=== PATIENT | female | born 1930 | race Caucasian/White ===

== ENCOUNTER 2017-06-17 12:14 | Emergency (ER) | payer OTHER ==
[~2017-06-17] VITALS: Ht 160 cm; Wt 77.1 kg
[~2017-06-17 12:14] MED LIST: ALENDRONATE SOD70 MG PO; ASA81BEC PO; AUGMENTIN 875875 MG PO; CALCIUM 500 +1 EAC5 PO; CIPRO250 M1 PO; CIPRO500 M1 PO; CIPRO500 MG PO; CRESTOR10 MG PO; FLAGYL500 MG PO; FLONASE 0.05%50 MCG NASAL; FOLIC ACID1 MG PO; GABAPENTIN 100100 MG PO; GLUCOSAMINE HC500 MG PO; INDERAL LA160 MG PO; LORATIDINE 10 M10 M1 PO; LOVASTATIN 20 M20 MG PO; MACROBID 100 M100 M1 PO; MAGOX 400400 MG PO; MAXZIDE-25 MG1 EACH PO; METHOTREXATE 22.5 MG; METHOTREXATE 22.5 MG PO; MIRALAX17 GM PO; NEURONTIN 400M400 M2 PO; NORCO 5-325 TA1 EACH PO; PANTOPRAZOLE SO40 M1 PO; PHENAZOPYRIDIN100 M1 PO; PILOCARPINE 1%15 ML; POTASSIUM20 PO; PREDNISONE 1 MG1 M1 PO; PREDNISONE 10 M10 MG PO; PROPRANOLOL 8080 MG PO; TRAMADOL 50 MG50 MG PO; TYLENOL325 MG PO; UNICOMPLEX M TA1 TA1 PO; XANAX 0.25 MG0.25 MG PO
[2017-06-17] MEDS ORDERED: VALACYCLOVIR1000 MG PO (12:37)
== END 2017-06-17 12:37 | disposition home or self-care (01) ==
LOC: ER 12:14
DX: B02.9 Zoster without complications (principal); I10 Essential (primary) hypertension; F41.9 Anxiety disorder, unspecified; F32.9 Major depressive disorder, single episode, unspecified; Z90.49 Acquired absence of other specified parts of digestive tract; Z88.1 Allergy status to other antibiotic agents; Z88.2 Allergy status to sulfonamides; Z88.8 Allergy status to other drugs, medicaments and biological substances

== ENCOUNTER 2017-07-03 11:54 | Emergency (ER) | payer OTHER ==
[~2017-07-03] VITALS: Ht 160 cm; Wt 77.1 kg
[~2017-07-03 11:54] MED LIST changes: +VALACYCLOVIR1000 MG PO
[2017-07-03 12:35] LABS: URINE BILIRUBIN 1+ (Negative); URINE BLOOD 3+ (Negative); URINE COLOR RED; URINE GLUCOSE-RANDOM* NEGATIVE (Negative); URINE KETONES NEGATIVE (Negative); URINE PROTEIN (DIPSTICK) 2+ (Negative); URINE SPECIFIC GRAVITY 1.015 (1.003-1.035); URINE UROBILINOGEN 0.2 E.U./dl (0.2-1.0)
[2017-07-03 12:40] LABS: ICTOTEST (BILI CONFIRMATORY) Negative (Negative); URINE LEUKOCYTES-REFLEX 1+ (Negative)
[2017-07-03 12:46] LABS: CASTS None Seen /LPF (None Seen); CRYSTALS None Seen /LPF (None Seen); SQUAMOUS 0-3 Few /LPF (0-3); URINE RBC >20 Many /HPF (0-2); URINE WBC-REFLEX 6-15 Few /HPF (0-5)
[2017-07-03] MEDS ORDERED: BACTRIM DS TAB1 EACH PO (13:56)
== END 2017-07-03 14:18 | disposition home or self-care (01) ==
LOC: ER 11:54
PROVIDERS: Physician Assistant
DX: N39.0 Urinary tract infection, site not specified (principal); I10 Essential (primary) hypertension; F41.9 Anxiety disorder, unspecified; F32.9 Major depressive disorder, single episode, unspecified; Z88.1 Allergy status to other antibiotic agents; Z88.2 Allergy status to sulfonamides; Z88.8 Allergy status to other drugs, medicaments and biological substances

== ENCOUNTER → 2017-10-04 | Outpatient (CLI) | payer OTHER ==
[~2017-10-04] MED LIST changes: +BACTRIM DS TAB1 EACH PO
== END ==
LOC: RAD 14:52
DX: Z12.31 Encounter for screening mammogram for malignant neoplasm of breast (principal)

== ENCOUNTER 2017-12-03 10:12 | Emergency (ER) | payer OTHER ==
[~2017-12-03] VITALS: Ht 160 cm; Wt 74.4 kg
--- NOTE | ~2017-12-03 | EKG ---
[address] [place] [address] ELECTROCARDIOGRAM REPORT Name: DIONNE MCMAHAN [id number] Admission: 12/03/17 Attend Phys: Discharge: 12/03/17 Date of : 32 Report #: [id number] THIS REPORT FOR: //name// [facility] ED Test Date: 2017-12-03 Test Time: 10:24:20 Pat Name: DIONNE MCMAHAN Department: Room: Gender: F Criminal Psychologist: SUSAN : 1930 Requested By: Roberta Simental Order Number: [id number] MD: Bashir Nolasco Measurements Intervals [place] Rate: 74 P: 26 ND: 223 QRS: 4 QRSD: 101 T: 3 QT: 412 QTc: 457 Interpretive Statements Sinus rhythm Prolonged ND interval Poor R wave progression Borderline T abnormalities, anterior leads Compared to ECG 05/09/2014 19:01:06 No significant change was found Electronically Signed On 12-04-2017 14:30:18 SPREADING MACHINE OPERATOR by Bashir Nolasco [email or web address] <ELECTRONICALLY SIGNED> By: Bashir Nolasco MD, [facility] 12/04/17 1430 [facility] 1024 Bashir Nolasco MD, FAC /EPI
[2017-12-03 11:55] LABS: ABSOLUTE NEUTROPHILS 5.6 thou/uL (1.4-8.2); BASOPHILS 1.4 % (0.0-2.0); EOSINOPHILS 5.1 % (0.0-3.0); HEMATOCRIT 32.7 % (37.0-47.0); LYMPHOCYTES 20.8 % (24.0-44.0); MCH 31.2 pg (26.0-34.0); MCHC 33.7 g/dL (28.0-37.0); MCV 92.7 fL (80.0-100.0); PLATELET COUNT 278 thou/uL (150-400); POLYS 63.7 % (36.0-66.0); RBC 3.53 mil/uL (4.20-5.00); RDW 15.2 % (10.5-14.5); WBC 8.8 thou/uL (4.0-11.0)
[2017-12-03 11:56] LABS: CALCIUM 9.4 mg/dL (8.5-10.1); CREATININE 1.1 mg/dL (0.6-1.0)
[2017-12-03] MEDS ORDERED: POTASSIUM20 PO (12:26)
[2017-12-03] MEDS ORDERED: ZOFRAN ODT4 MG PO (12:26)
[2017-12-03 13:02] VITALS: BP 140/78
== END 2017-12-03 13:02 | disposition home or self-care (01) ==
LOC: ER 10:12
PROVIDERS: Emergency Medicine
DX: E87.6 Hypokalemia (principal); R19.7 Diarrhea, unspecified; R11.0 Nausea; I10 Essential (primary) hypertension; Z88.1 Allergy status to other antibiotic agents; Z88.2 Allergy status to sulfonamides

== ENCOUNTER 2018-03-26 12:07 | Inpatient (IN) | payer OTHER ==
[~2018-03-26] VITALS: Ht 160 cm; Wt 74.8 kg
--- NOTE | ~2018-03-26 | HC ---
[facility] [place] [address] CONSULTATION Name: DIONNE MMCAHAN Room #: 418-P [facility] IN M.R.#: [id number] Admission: 03/26/18 Attend Phys: Sina Gonzalez MD Discharge: Date of : 32 Report #: [id number] THIS REPORT FOR: //name// CC: Sebastien Gonzalez DATE OF SERVICE: 03/27/2018 REFERRING PROVIDER: Sina Gonzalez MD. REASON FOR CONSULT: Abdominal pain. HISTORY OF PRESENT ILLNESS: The patient is an 87-year-old female who has a significant past history of multiple bouts of acute sigmoid diverticulitis requiring hospitalizations who was in her usual state of health until 3-4 days ago when she developed recurrent left lower quadrant abdominal pain progressing to nausea, fevers and chills. The patient presented back to the Emergency Room for evaluation where she underwent workup with laboratories and a CT scan of the abdomen and pelvis. The patient was found to have a leukocytosis with a white blood cell count of 16.[address] scan once again showed acute sigmoid diverticulitis without perforation or abscess. As such, the patient has been admitted and I am asked to evaluate. PAST MEDICAL HISTORY: 1. Multiple (greater than 6) bouts of acute sigmoid diverticulitis requiring hospitalization, prior open cholecystectomy, pulmonary embolism in the past, hypertension, bilateral lower extremity neuropathy. 2. Anxiety with depression. 3. GERD. 4. Hypercholesterolemia. HOME MEDICATIONS: Xanax, aspirin, calcium, vitamin D3, Flonase, glucosamine, Claritin, multivitamin, Protonix, Ultram, triamterene/hydrochlorothiazide, gabapentin, alendronate, MiraLax, lovastatin, methotrexate and prednisone. ALLERGIES: EXTENSIVE AND INCLUDE AMOXICILLIN, CEFDINIR, LEVAQUIN, AMITIZA, PROMETHAZINE, AND SULFA. SOCIAL HISTORY: Does not utilize tobacco, alcohol or illicit drugs. FAMILY HISTORY: Reviewed and noncontributory. REVIEW OF SYSTEMS: GENERAL: The patient denies nocturnal fevers or chills. HEENT: No change in vision, change in hearing. NECK: No swelling or difficulty swallowing. [facility] [address] [place] [address] CONSULTATION Name: DIONNE MCMAHAN Room #: 418-P [facility] IN M.R.#: [id number] Admission: 03/26/18 Attend Phys: Sina Gonzalez MD Discharge: Date of : 32 Report #: [id number] HEART: No chest pain or palpitations. LUNGS: No cough or shortness of breath. ABDOMEN: Abdominal pain with nausea. GENITOURINARY: No dysuria or hematuria. ENDOCRINE: No polyuria or polydipsia. HEMATOLOGIC: No history of bleeding or easy bruising. EXTREMITIES: No history weakness or limited range of motion. NEUROLOGIC: No history of syncope or near syncopal episodes. SKIN AND INTEGUMENT: No history of abnormal lesions or moles. PSYCHIATRIC: History of anxiety and depression. PHYSICAL EXAMINATION: VITAL SIGNS: Temperature 37.2, pulse 85, respirations 16, blood pressure 148/73. GENERAL: Alert, in no acute distress. HEENT: Normocephalic, atraumatic. Pupils equal, round, reactive to light. NECK: Supple without lymphadenopathy. Trachea midline. HEART: Regular rate and rhythm. LUNGS: Clear to auscultation bilaterally. ABDOMEN: Soft, nondistended. She is tender to palpation in left lower quadrant, has very minimal guarding and no rebound with certainly no peritoneal signs or symptoms. GENITOURINARY: Normal external female genitalia. EXTREMITIES: No clubbing, cyanosis or edema. NEUROLOGIC: Cranial nerves 2-12 are grossly intact. PSYCHIATRIC: Normal mood and affect. SKIN AND INTEGUMENT: No abnormal lesions or moles. LABORATORY AND X-RAY DATA: CBC shows white blood cell count 16.2 thousand, hemoglobin 11.5, platelets 306,000. Creatinine 1.2. Liver function enzymes normal. Lactate is normal at 1.8. CRP is elevated at 114. Sed rate is elevated at 65. CT scan of the abdomen and pelvis as per HPI shows circumferential thickening of the sigmoid colon from the splenic flexure to the distal sigmoid colon. There is luminal narrowing seen and fat stranding consistent with acute on chronic diverticulitis. There is no abscess or perforation. ASSESSMENT AND PLAN: An 87-year-old female with yet another bout of acute sigmoid diverticulitis requiring admission, luckily without perforation or abscess. The patient will be kept n.p.o. with IV fluid rehydration, IV antibiotics in the form of Zosyn and we will allow her to improve, hopefully yet once again. Ultimately, she will necessitate a colonoscopy with formal left hemicolectomy due to her significant inflammatory findings seen on CT scan. Colonoscopy would not be able to be performed for at least approximately 4 weeks due to the friable nature of her acutely inflamed colon and the colectomy would be scheduled thereafter. If the patient should decompensate prior, she would [address] [place] [address] CONSULTATION Name: DIONNE MCMAHAN Room #: 418-P ADM IN M.R.#: [id number] Admission: 03/26/18 Attend Phys: Sina Gonzalez MD Discharge: Date of : 32 Report #: [id number] necessitate open procedure with colostomy placement. All the above was discussed with the patient and her daughter in detail and they agree to proceed as outlined. I will follow closely with serial abdominal exams, daily labs and leave any further recommendations in the patient's chart as appropriate. I sincerely appreciate this consult. <ELECTRONICALLY SIGNED> By: Raissa Wild MD, FACS 03/28/18 1659 1129 [id number] Raissa Wild MD, FACS /nt
--- NOTE | ~2018-03-26 | HC ---
[facility] [place] [address] CONSULTATION Name: DIONNE MCMAHAN Room #: 222-P [facility] IN M.R.#: [id number] Admission: 03/26/18 Attend Phys: Sina Gonzalez MD Discharge: 03/31/18 Date of : 32 Report #: [id number] THIS REPORT FOR: //name// CC: Sebastien Gonzalez DATE OF SERVICE: 03/31/2018 ATTENDING PHYSICIAN: Sina Gonzalez MD. REASON FOR CONSULTATION: Antibiotic management. Oral antibiotic at the time of discharge. Multiple drug allergies. HISTORY OF PRESENT ILLNESS: The patient is an 87-year-old white woman, patient of Dr. Sebastien Simental, readmitted with abdominal pain and diagnosed to have recurrent acute diverticulitis, treated with Zosyn with improvement of symptoms, evaluated by Dr. Raissa Wild and advised to undergo either laparoscopic or open segmental colon resection for recurrent diverticulitis. The patient was previously hospitalized, may be on a couple of occasions with diverticulitis. She was evaluated by Dr. Hanna on outpatient basis. She relates history of drug allergies that include Augmentin-related diarrhea, which obviously is not an allergic reaction. Currently, the patient is improved and voices no major complaints. She was told by Dr. Gonzalez she may be discharged today. By Dr. Wild, she may be discharged tomorrow. DRUG ALLERGIES: THE PATIENT RELATES ALLERGIES TO AUGMENTIN (DIARRHEA). SULFA DRUG, HYPERSENSITIVITY TO HEAT. LEVAQUIN INDUCE CONFUSION. CEFDINIR, UNKNOWN REACTION. SHE ALSO RELATES ALLERGIC REACTION SIDE EFFECTS FROM PROMETHAZINE AND LUBIPROSTONE. MEDICATIONS: Her current medications include lidocaine patch daily, polyethylene glycol 17 g p.o. t.i.d., prochlorperazine 10 mg IV q. 4h. p.r.n., prednisone 3 mg daily, multivitamins with iron 1 tablet daily, glucosamine 500 mg daily, calcium carbonate 1 tablet daily, aspirin 81 mg daily, pantoprazole 40 mg daily, atorvastatin 20 mg at bedtime, gabapentin 800 mg at bedtime, hydralazine p.r.n., heparin 5000 units subcutaneous t.i.d., acetaminophen 650 q.i.d. p.r.n., zolpidem tartrate 5 mg at bedtime p.r.n., ondansetron 4 mg IV q. 4h. p.r.n., tramadol p.r.n., loratadine p.r.n., fluticasone propionate p.r.n., alprazolam p.r.n., morphine sulfate p.r.n. Antibiotic mcgill, she is on Zosyn 3.375 g IV every 8 hours since 03/26/2018. The patient is also on methotrexate 2.5 mg p.o. 4 tablets weekly. SOCIAL HISTORY: . The patient's also being seen by Dr. Bragg, on methotrexate for rheumatoid arthritis. [address] [place] [address] CONSULTATION Name: DIONNE MCMAHAN Room #: 222-P [facility] IN M.R.#: [id number] Admission: 03/26/18 Attend Phys: Sina Gonzalez MD Discharge: 03/31/18 Date of : 32 Report #: [id number] FAMILY HISTORY: See H and P. REVIEW OF SYSTEMS: Abdominal pain, improved. See H and P. PHYSICAL EXAMINATION: GENERAL: This is a well-developed woman, not toxic looking. VITAL SIGNS: Temperature maximum recorded since the time of admission 99.3 on 03/27/2018. Today is 97.9, pulse 66, respirations 21, BP 152/83, height 5 feet 3 inches, weight 165 pounds. HEENMT: Pupils reactive. Conjunctivae normal. Mouth: Moist mucous membrane. NECK: Supple. BREASTS: Deferred. LUNGS: Clear. HEART: S1, S2. No gallop. ABDOMEN: Midline surgical wound upper abdomen from previous cholecystectomy. The abdomen is soft. Minimal left lower abdominal quadrant tenderness. PELVIC AND RECTAL: Deferred. EXTREMITIES: Negative. LABORATORY DATA: Sodium 139, potassium 3.7. BUN and creatinine normal. Magnesium normal. C-reactive protein on the date of admission mg/dL. WBC yesterday was 13,300, today is 9300, but patient's hemoglobin on admission is 11.5 and today is 9.8 g/dL, platelets 298,000. White blood cell count differential today revealed 60% neutrophils and 23% lymphocytes. ESR on 03/26/2018 was 65 mm per hour. Urinalysis revealed trace protein, 1-9 bacteria per HPF and 0-3 hyaline casts per HPF; otherwise, negative. A copy of these test results provided to the patient to be shared with Dr. Simental and her manager audio. RADIOLOGY EVALUATION: A CT scan of the abdomen and pelvis on 03/26/2018 revealed findings that may suggest some thickening of the sigmoid colon and inflammatory fat stranding compatible with diverticulitis. The repeat CT scan of the abdomen and pelvis yesterday revealed improvement of these findings, but lots of stool in the colon. ASSESSMENT: 1. Recurrent diverticulitis. 2. Chronic constipation. 3. Immunosuppressed host, on methotrexate and prednisone for PMR. Multiple drug allergies and intolerance (diarrhea from Augmentin). 4. Anemia. SUGGESTIONS: Recommend obviously since the patient is showing true allergy to the penicillin antibiotic, may benefit from being discharged on amoxicillin 500 mg p.o. t.i.d. plus Flagyl 500 mg p.o. b.i.d. to complete 5-7 days of treatment. [facility] [address] [place] [address] CONSULTATION Name: DIONNE MCMAHAN Room #: 222-P [facility] IN M.R.#: [id number] Admission: 03/26/18 Attend Phys: Sina Gonzalez MD Discharge: 03/31/18 Date of : 32 Report #: [id number] We will continue bowel since she appears to have chronic constipation and we will contact primary physician for followup and address the issue of using methotrexate for polymyalgia rheumatica in combination with low-dose prednisone. Dr. Gonzalez, thank you for requesting my suggestions in the care of your patient. <ELECTRONICALLY SIGNED> By: Navneet Cao MD 04/01/18 0823 1440 10 Navneet Cao MD /nt
[~2018-03-26 12:07] MED LIST changes: +ZOFRAN ODT4 MG PO
[2018-03-26 12:14] VITALS: BP 148/73
[2018-03-26 12:32] LABS: URINE BILIRUBIN NEGATIVE (Negative); URINE BLOOD NEGATIVE (Negative); URINE CLARITY CLEAR; URINE COLOR YELLOW; URINE GLUCOSE-RANDOM* NEGATIVE (Negative); URINE KETONES NEGATIVE (Negative); URINE LEUKOCYTES 1+ (Negative); URINE NITRITE NEGATIVE (Negative); URINE PROTEIN (DIPSTICK) TRACE (Negative); URINE SPECIFIC GRAVITY 1.015 (1.005-1.035); URINE UROBILINOGEN 0.2 E.U./dl (0.2-1.0)
[2018-03-26 12:47] LABS: ABSOLUTE NEUTROPHILS 12.6 thou/uL (1.4-8.2); BASOPHILS 0.4 % (0.0-2.0); EOSINOPHILS 1.2 % (0.0-3.0); HEMATOCRIT 35.1 % (37.0-47.0); HEMOGLOBIN 11.5 gm/dL (12.0-15.0); LYMPHOCYTES 11.9 % (24.0-44.0); MCH 30.4 pg (26.0-34.0); MCHC 32.8 g/dL (28.0-37.0); MCV 92.8 fL (80.0-100.0); MONOCYTES 8.5 % (1.0-8.0); PLATELET COUNT 306 thou/uL (150-400); RBC 3.78 mil/uL (4.20-5.00); WBC 16.2 thou/uL (4.0-11.0)
[2018-03-26 12:56] LABS: CALCIUM 9.4 mg/dL (8.5-10.1); CREATININE 1.2 mg/dL (0.6-1.0); POTASSIUM 3.2 mmol/L (3.5-5.1)
[2018-03-26 13:00] LABS: CRYSTALS None Seen /LPF (None Seen); HYALINE CASTS 0-3 Few /LPF (None Seen); SQUAMOUS 0-3 Few /LPF (0-3); URINE RBC None Seen /HPF (0-2); URINE WBC 0-5 Rare /HPF (0-5)
[2018-03-26 13:01] LABS: BACTERIA 1-9 Few /HPF (None Seen)
[2018-03-26 13:01] LABS: ALBUMIN 3.4 g/dL (3.4-5.0); DIRECT BILIRUBIN 0.2 mg/dL (<0.1-0.3); TOTAL BILIRUBIN 0.5 mg/dL (<0.1-1.0); TOTAL PROTEIN 7.7 g/dL (6.4-8.2)
[2018-03-26 14:01] VITALS: BP 148/73
[2018-03-26 14:35] VITALS: BP 121/62
[2018-03-26 15:43] VITALS: BP 100/54
[2018-03-26 20:00] VITALS: BP 102/52
[2018-03-27 04:27] VITALS: BP 76/39
[2018-03-27 04:58] LABS: HEMATOCRIT 30.2 % (37.0-47.0); HEMOGLOBIN 9.8 gm/dL (12.0-15.0); MCH 30.7 pg (26.0-34.0); MCHC 32.4 g/dL (28.0-37.0); MCV 94.6 fL (80.0-100.0); RBC 3.19 mil/uL (4.20-5.00); RDW 15.3 % (10.5-14.5); WBC 10.9 thou/uL (4.0-11.0)
[2018-03-27 05:14] LABS: CALCIUM 8.6 mg/dL (8.5-10.1); CREATININE 1.2 mg/dL (0.6-1.0); POTASSIUM 3.3 mmol/L (3.5-5.1)
[2018-03-27 06:00] VITALS: BP 104/50
[2018-03-27 07:21] VITALS: BP 113/54
[2018-03-27 08:24] LABS: MAGNESIUM 1.9 mg/dL (1.8-2.4)
[2018-03-27 22:00] VITALS: BP 110/62
[2018-03-28 04:50] VITALS: BP 112/60
[2018-03-28 06:02] LABS: ABSOLUTE NEUTROPHILS 5.5 thou/uL (1.4-8.2); BASOPHILS 0.8 % (0.0-2.0); EOSINOPHILS 4.6 % (0.0-3.0); HEMATOCRIT 30.9 % (37.0-47.0); HEMOGLOBIN 10.2 gm/dL (12.0-15.0); LYMPHOCYTES 19.1 % (24.0-44.0); MCH 31.2 pg (26.0-34.0); MCHC 33.1 g/dL (28.0-37.0); MCV 94.3 fL (80.0-100.0); MONOCYTES 8.5 % (1.0-8.0); PLATELET COUNT 269 thou/uL (150-400); RBC 3.28 mil/uL (4.20-5.00); RDW 14.9 % (10.5-14.5); WBC 8.2 thou/uL (4.0-11.0)
[2018-03-28 06:14] LABS: CALCIUM 8.4 mg/dL (8.5-10.1); MAGNESIUM 2.5 mg/dL (1.8-2.4); POTASSIUM 3.9 mmol/L (3.5-5.1)
[2018-03-28 07:46] VITALS: BP 137/75
[2018-03-28 10:26] VITALS: BP 127/69; BP 151/67
[2018-03-28 10:27] VITALS: BP 113/67
[2018-03-28 19:58] VITALS: BP 139/71
[2018-03-29 07:47] LABS: ABSOLUTE NEUTROPHILS 5.3 thou/uL (1.4-8.2); BASOPHILS 0.9 % (0.0-2.0); EOSINOPHILS 5.4 % (0.0-3.0); HEMOGLOBIN 10.4 gm/dL (12.0-15.0); LYMPHOCYTES 22.1 % (24.0-44.0); MCH 31.4 pg (26.0-34.0); MCHC 33.6 g/dL (28.0-37.0); MCV 93.2 fL (80.0-100.0); MONOCYTES 6.6 % (1.0-8.0); PLATELET COUNT 338 thou/uL (150-400); RBC 3.32 mil/uL (4.20-5.00); RDW 14.9 % (10.5-14.5); WBC 8.2 thou/uL (4.0-11.0)
[2018-03-29 07:59] LABS: CALCIUM 8.7 mg/dL (8.5-10.1); POTASSIUM 3.9 mmol/L (3.5-5.1)
[2018-03-29 08:00] VITALS: BP 116/70
[2018-03-29 19:39] VITALS: BP 119/61
[2018-03-30 07:16] VITALS: BP 129/69
[2018-03-30 07:25] LABS: HEMATOCRIT 29.2 % (37.0-47.0); HEMOGLOBIN 10.1 gm/dL (12.0-15.0); MCH 32.2 pg (26.0-34.0); MCHC 34.4 g/dL (28.0-37.0); MCV 93.6 fL (80.0-100.0); RBC 3.12 mil/uL (4.20-5.00); RDW 15.1 % (10.5-14.5); WBC 13.3 thou/uL (4.0-11.0)
[2018-03-30 07:36] LABS: CALCIUM 8.2 mg/dL (8.5-10.1); CREATININE 0.9 mg/dL (0.6-1.0); POTASSIUM 3.7 mmol/L (3.5-5.1)
[2018-03-30 20:00] VITALS: BP 158/72
[2018-03-31 07:15] VITALS: BP 152/83
[2018-03-31 07:18] LABS: ABSOLUTE NEUTROPHILS 5.6 thou/uL (1.4-8.2); BASOPHILS 1.2 % (0.0-2.0); EOSINOPHILS 4.5 % (0.0-3.0); HEMATOCRIT 29.5 % (37.0-47.0); HEMOGLOBIN 9.8 gm/dL (12.0-15.0); LYMPHOCYTES 23.2 % (24.0-44.0); MCH 31.1 pg (26.0-34.0); MCHC 33.2 g/dL (28.0-37.0); MCV 93.6 fL (80.0-100.0); MONOCYTES 10.6 % (1.0-8.0); PLATELET COUNT 298 thou/uL (150-400); POLYS 60.5 % (36.0-66.0); RBC 3.15 mil/uL (4.20-5.00); RDW 15.3 % (10.5-14.5); WBC 9.3 thou/uL (4.0-11.0)
[2018-03-31 07:27] LABS: CALCIUM 8.9 mg/dL (8.5-10.1); CREATININE 0.9 mg/dL (0.6-1.0); POTASSIUM 3.7 mmol/L (3.5-5.1)
[2018-03-31] MEDS ORDERED: AMOXICILLIN 50500 MG PO ×2 (14:33→14:44)
[2018-03-31] MEDS ORDERED: FLAGYL500 MG PO ×2 (14:33→14:44)
[2018-03-31 15:22] VITALS: BP 152/83
[2018-03-31] MEDS ORDERED: COLACE100 MG PO (15:39)
== END 2018-03-31 18:00 | disposition home health service (06) | DRG 392 ==
LOC: ER 12:07 → EROBS 13:42 → 4E 13:42 → SICU 03-28 17:06 → ENTRNSPT 03-31 17:29 → SICU 03-31 18:00
PROVIDERS: Emergency Medicine; Hospitalist; Surgery
DX: K57.20 Diverticulitis of large intestine with perforation and abscess without bleeding (principal); I10 Essential (primary) hypertension; F32.9 Major depressive disorder, single episode, unspecified; F41.9 Anxiety disorder, unspecified; E87.6 Hypokalemia; D72.829 Elevated white blood cell count, unspecified; K21.9 Gastro-esophageal reflux disease without esophagitis; E78.00 Pure hypercholesterolemia, unspecified; K59.09 Other constipation; D64.9 Anemia, unspecified; G62.9 Polyneuropathy, unspecified; G47.00 Insomnia, unspecified; E78.5 Hyperlipidemia, unspecified; E86.0 Dehydration; Z79.82 Long term (current) use of aspirin; Z86.711 Personal history of pulmonary embolism; Z90.49 Acquired absence of other specified parts of digestive tract; Z88.1 Allergy status to other antibiotic agents; Z88.2 Allergy status to sulfonamides; Z88.8 Allergy status to other drugs, medicaments and biological substances; Z79.899 Other long term (current) drug therapy
CPT/HCPCS: 10084; 15002

== ENCOUNTER → 2018-05-16 | Outpatient (CLI) | payer OTHER ==
[~2018-05-16] MED LIST changes: +AMOXICILLIN 50500 MG PO; +COLACE100 MG PO
--- NOTE | ~2018-05-16 | P ---
[facility] [place] [address] PROCEDURE REPORT Name: DIONNE MCMAHAN Room #: REG [facility]#: [id number] Admission: 05/16/18 Attend Phys: Michael Hanna MD Discharge: Date of : 32 Report #: [id number] THIS REPORT FOR: //name// CC: Sebastien Wild MD DATE OF SERVICE: 05/16/2018 BRIEF HISTORY: The patient is an 87-year-old woman who has had recurrent bouts of diverticulitis. She has had a CT, which was done on 03/30/2018. There was noted to be marked smooth muscle hypertrophy of the sigmoid colon. Large amount of retained fluid was noted proximally. She has had an abnormal sigmoid colon on previous CT. Plans are in progress for segmental resection due to recurrent diverticulitis. PREOPERATIVE DIAGNOSES: Diverticulitis and abnormal CT suggesting sigmoid stricture or possibly neoplastic process. 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 MEDICATIONS: Deep sedation with propofol per anesthesia. SPECIMEN: None. ESTIMATED BLOOD LOSS: None. PROCEDURE: Colonoscopy to sigmoid stricture, incomplete exam due to sigmoid stricture. FINDINGS: Prior to propofol sedation, procedure of colonoscopy discussed with the patient of all potential risks and its complications. She indicates she understands and desire that we proceed. DESCRIPTION OF PROCEDURE: With the patient in left lateral decubitus position, digital examination was completed, which revealed no abnormalities. Subsequently, the GigaLogix video colonoscope was introduced in the rectum. The Olympus video colonoscope was introduced in the rectum, advanced under direct vision. Scope was advanced to the rectum into the sigmoid colon. We actually started the procedure with a pediatric colonoscope. We advanced the scope into the distal sigmoid. Scattered diverticula were seen. The lumen narrowed. The mucosa was intact and appeared normal, but the lumen could not be clearly identified. We filled the area with water, but still could not identify a lumen. Multiple attempts were made without success of finding lumen in the past with a sigmoid stricture. Again, no neoplastic processes were seen. After [facility] [address] [address] PROCEDURE REPORT Name: MRAJDIONNEPILY DIEGO Room #: REG NOE Huerta#: [id number] Admission: 05/16/18 Attend Phys: Michael Hanna MD Discharge: Date of : 32 Report #: [id number] multiple attempts were made, we withdrew the scope and restarted the exam with an Olympus video upper endoscope. We had the same problem. We then placed the patient in the supine position and in no time we clearly identified lumen, so that we could safely pass the scope through the sigmoid stricture. After multiple and repeated attempts for multiple positions including splinting and pressure on the abdomen, we could not find a safe path through the stricture. Therefore, the procedure was terminated at that point. The scope was withdrawn. Upon careful circumferential views were obtained, the prep was good. The mucosa was within normal limits, normal vascular pattern, normal light reflex. The scope was withdrawn in the rectum. Upon retroflexion, no abnormalities were seen. Scope was withdrawn. The patient tolerated the procedure well. CONDITION OF THE PATIENT UPON DISCHARGE: Following procedure, the patient drowsy, aroused, conversant and will be discharged home when fully ambulatory. INSTRUCTIONS TO THE PATIENT AND FAMILY AT THE TIME OF DISCHARGE: We were unsuccessful in advancing the scope through the stricture. This is suspected to be stricturing from sigmoid diverticulosis. Endoscopically, a neoplastic process was not seen. She is to follow up Dr. Raissa Wild for segmental resection, which has been planned. If further information is needed, a barium enema may be helpful; however, it is noted she did have a CT on 03/30/2018, which may be satisfactory for surgical purposes. Suggest followup colon exam after her segmental resection. <ELECTRONICALLY SIGNED> By: Michael Hanna MD 05/17/18 1710 1153 1251 Michael Hanna MD /nt
== END | disposition home or self-care (01) ==
LOC: GI 09:03
DX: K57.30 Diverticulosis of large intestine without perforation or abscess without bleeding (principal); K56.699 Other intestinal obstruction unspecified as to partial versus complete obstruction; K57.32 Diverticulitis of large intestine without perforation or abscess without bleeding; I12.9 Hypertensive chronic kidney disease with stage 1 through stage 4 chronic kidney disease, or unspecified chronic kidney disease; N18.9 Chronic kidney disease, unspecified; G62.9 Polyneuropathy, unspecified; D64.9 Anemia, unspecified; M35.3 Polymyalgia rheumatica; F32.9 Major depressive disorder, single episode, unspecified; F41.9 Anxiety disorder, unspecified; J40 Bronchitis, not specified as acute or chronic; Z87.19 Personal history of other diseases of the digestive system; Z88.8 Allergy status to other drugs, medicaments and biological substances; Z79.899 Other long term (current) drug therapy; Z79.82 Long term (current) use of aspirin; Z86.711 Personal history of pulmonary embolism; Z96.651 Presence of right artificial knee joint
CPT/HCPCS: 62110; 62900

== ENCOUNTER 2018-10-11 11:01 | Emergency (ER) | payer OTHER ==
[~2018-10-11] VITALS: Ht 160 cm; Wt 68.0 kg
--- NOTE | ~2018-10-11 | EKG ---
[address] [place] [employer] [address] ELECTROCARDIOGRAM REPORT Name: DIONNE MCMAHAN Room #: REG [facility] [id number] Admission: 10/11/18 Attend Phys: Discharge: Date of : 32 Report #: [id number] THIS REPORT FOR: //name// [facility] ED Test Date: 2018-10-11 Test Time: 11:26:42 Pat Name: DIONNE MCMAHAN Department: Room: Gender: F Geospatial Image Analyst: RONA : 1930 Requested By: Shirley Newell Order Number: [id number] MD: Bryce Cao Measurements Intervals [place] Rate: 78 P: -13 SC: 195 QRS: -5 QRSD: 113 T: 14 QT: 406 QTc: 463 Interpretive Statements Sinus rhythm Atrial premature complex Low voltage, precordial leads Compared to ECG 12/03/2017 10:24:20 Atrial premature complex(es) now present Electronically Signed On 10-11-2018 13:29:48 ENGINEERING SURVEYOR by Bryce Cao [email or web address] <ELECTRONICALLY SIGNED> By: Bryce Cao MD 10/11/18 1329 1126 1126 Bryce Cao MD /DEIDRA
[~2018-10-11 11:01] MED LIST changes: +CENTRUM SILVER1 EAC4 PO; +OSTEO BI-FLEX1 EAC1 PO; +PROBIOTIC1 EAC1 PO; +VITAMIN C1000 MG PO
[2018-10-11 11:33] LABS: HEMATOCRIT 36.3 % (37.0-47.0); HEMOGLOBIN 12.2 gm/dL (12.0-15.0); MCH 29.2 pg (26.0-34.0); MCV 87.2 fL (80.0-100.0); RBC 4.17 mil/uL (4.20-5.00); WBC 12.7 thou/uL (4.0-11.0)
[2018-10-11 11:34] LABS: MCHC 33.5 g/dL (28.0-37.0); RDW 14.4 % (10.5-14.5)
[2018-10-11 11:44] LABS: ANION GAP 7 mmol/L (7-16); BUN 23 mg/dL (7-18); CALCIUM 10.4 mg/dL (8.5-10.1); CHLORIDE 102 mmol/L (98-107); CO2 31 mmol/L (21-32); CREATININE 1.1 mg/dL (0.6-1.0); GLUCOSE 115 mg/dL (74-106); POTASSIUM 3.4 mmol/L (3.5-5.1); SODIUM 140 mmol/L (136-145)
[2018-10-11 11:53] LABS: ALBUMIN 3.6 g/dL (3.4-5.0); LIPASE 88 U/L (73-393); SGOT 31 U/L (15-37); SGPT 33 U/L (30-65); TOTAL BILIRUBIN 0.4 mg/dL (<0.1-1.0); TOTAL PROTEIN 9.2 g/dL (6.4-8.2); TROPONIN-I <0.06 ng/mL (<0.06)
[2018-10-11 12:53] LABS: URINE BILIRUBIN NEGATIVE (Negative); URINE BLOOD NEGATIVE (Negative); URINE CLARITY CLEAR; URINE COLOR YELLOW; URINE GLUCOSE-RANDOM* NEGATIVE (Negative); URINE KETONES TRACE (Negative); URINE LEUKOCYTES-REFLEX TRACE (Negative); URINE NITRITE-REFLEX NEGATIVE (Negative); URINE PROTEIN (DIPSTICK) NEGATIVE (Negative); URINE UROBILINOGEN 0.2 E.U./dl (0.2-1.0)
[2018-10-11] MEDS ORDERED: ZOFRAN ODT4 MG PO (13:13)
[2018-10-11 13:38] VITALS: BP 148/63
== END 2018-10-11 13:39 | disposition home or self-care (01) ==
LOC: ER 11:01
PROVIDERS: Student in an Organized Health Care Education/Training Program
DX: K56.699 Other intestinal obstruction unspecified as to partial versus complete obstruction (principal); R11.2 Nausea with vomiting, unspecified; G62.9 Polyneuropathy, unspecified; I10 Essential (primary) hypertension; F41.9 Anxiety disorder, unspecified; F32.9 Major depressive disorder, single episode, unspecified; E78.5 Hyperlipidemia, unspecified; K21.9 Gastro-esophageal reflux disease without esophagitis; Z88.1 Allergy status to other antibiotic agents; Z88.2 Allergy status to sulfonamides; Z88.8 Allergy status to other drugs, medicaments and biological substances; Z90.49 Acquired absence of other specified parts of digestive tract; Z96.651 Presence of right artificial knee joint; Z85.828 Personal history of other malignant neoplasm of skin; Z79.899 Other long term (current) drug therapy

== ENCOUNTER 2018-12-27 11:01 | Inpatient (IN) | payer OTHER ==
[~2018-12-27] VITALS: Ht 160 cm; Wt 68.0 kg
--- NOTE | 2018-12-27 12:16 | NUR ---
PT ARRIVED AT THIS TIME ACCOMPANIED BY DAUGHTER AND JUAN. DR NAMAN THAPA AND DR SCHULTZ CONSULTED.
[2018-12-27 13:39] VITALS: BP 136/81
[2018-12-27 14:05] LABS: ABSOLUTE NEUTROPHILS 4.1 thou/uL (1.4-8.2); BASOPHILS 1.1 % (0.0-2.0); EOSINOPHILS 5.4 % (0.0-3.0); HEMATOCRIT 34.4 % (37.0-47.0); HEMOGLOBIN 11.4 gm/dL (12.0-15.0); LYMPHOCYTES 35.6 % (24.0-44.0); MCH 30.1 pg (26.0-34.0); MCHC 33.1 g/dL (28.0-37.0); MCV 90.9 fL (80.0-100.0); MONOCYTES 8.4 % (1.0-8.0); PLATELET COUNT 243 thou/uL (150-400); POLYS 49.5 % (36.0-66.0); RBC 3.78 mil/uL (4.20-5.00); RDW 14.1 % (10.5-14.5); WBC 8.2 thou/uL (4.0-11.0)
[2018-12-27 14:17] LABS: PROTIME 10.4 Seconds (9.3-11.4)
[2018-12-27 14:28] LABS: ALBUMIN 3.6 g/dL (3.4-5.0); CALCIUM 10.5 mg/dL (8.5-10.1); CREATININE 1.2 mg/dL (0.6-1.0); MAGNESIUM 1.9 mg/dL (1.8-2.4); POTASSIUM 4.1 mmol/L (3.5-5.1); TOTAL BILIRUBIN 0.3 mg/dL (<0.1-1.0); TOTAL PROTEIN 8.5 g/dL (6.4-8.2)
--- NOTE | 2018-12-27 17:15 | EKG ---
[address] [address] ELECTROCARDIOGRAM REPORT Name: DIONNE MCMAHAN Room #: 430-P ADM IN M.R.#: [id number] ������������������ Admission: 12/27/18 ������������������ Attend Phys: Saleem Russo MD Discharge: ������������������ Date of : 32 Report #: [id number] ����������������������������������������������������������������� [id number] THIS REPORT FOR: //name// [facility] Test Date: 2018-12-27 Test Time: 16:22:02 Pat Name: DIONNE MCMAHAN Department: Room: 430 P Gender: F Chief Of Party: Zoë JAUREGUI : 1930 Requested By: Libertad Bueno Order Number: [id number] MD: Bryce Cao Measurements Intervals [place] Rate: 69 P: 22 ME: 257 QRS: 30 QRSD: 87 T: 29 QT: 412 QTc: 442 Interpretive Statements Sinus rhythm Prolonged ME interval Borderline T abnormalities, anterior leads Compared to ECG 10/11/2018 11:26:42 First degree AV block now present T-wave abnormality now present Atrial premature complex(es) no longer present Electronically Signed On 12-27-2018 17:14:47 UNIVERSITY EXTENSION SPECIALIST by Bryce Cao [email or web address] ��������������������������������������������� <ELECTRONICALLY SIGNED> ���������������������������������������� By: Bryce Cao MD ��������������������������������������������� 12/27/18 1714 1622 1622 Bryce Cao MD /EPI
[2018-12-27 17:24] VITALS: BP 146/73
--- NOTE | 2018-12-27 19:07 | NUR ---
DISCUSSED CODE STATUS WITH PATIENT SHE WANTS TO BE FULL CODE DR FLORENCE CALLED TO BE INFORMED.
[2018-12-27 20:45] VITALS: BP 137/59
--- NOTE | 2018-12-28 04:23 | NUR ---
ASSUMED PT CARE 1899. PT ALERT AND ORIENTED. AT BEDSIDE. REASSESSMENT COMPLETED. PT DENIES PAIN. PT DENIES N/V AT THIS TIME. IV DRESSING C/D/I, NO SIGNS OF INFILTRATION. PT TOLERATING 60CC GO LYTELY/HR WELL. PT CALL LIGHT AND PERSONAL BELONGINGS WITHIN REACH. WILL CONTNINUE POC UNTIL EOS.
[2018-12-28 04:45] VITALS: BP 114/64
[2018-12-28 07:53] VITALS: BP 140/66
--- NOTE | 2018-12-28 11:38 | NUR ---
INITIAL ASSESSMENT: Pt evaluated for d/c planning needs. Reviewed chart and spoke with nurse, pt, spouse, daughter and S-I-L. Pt lives in house with spouse and was independent with ADL's prior to admission to the hospital. Pt has walker and cane at home, and has had VNA in the past. Pt plans on returning home on d/c from hospital. Will remain available to assist as needed.
[2018-12-28 15:59] LABS: CALCIUM 9.5 mg/dL (8.5-10.1); CREATININE 1.1 mg/dL (0.6-1.0); MAGNESIUM 1.7 mg/dL (1.8-2.4); POTASSIUM 3.6 mmol/L (3.5-5.1)
[2018-12-28 16:30] VITALS: BP 145/66
[2018-12-28 19:30] VITALS: BP 158/68
[2018-12-29] VITALS (9 sets, daily range): BP systolic 78–132; BP diastolic 44–76
--- NOTE | 2018-12-29 03:54 | NUR ---
PT DENIED PAIN AT START OF SHIFT.PT CONT ON GOLYTELY 60CC WHILE AWAKE,LAST DOSE BEFORE MN.PT NPO AT THIS TIME FOR A PROCEDURE IN THE MORNING.SPOUSE AT BEDSIDE FOR ASSISTANCE.PT RESTING ON HER BED AT THIS TIME.CALL LIGHT WITHIN REACH.
[2018-12-29 05:46] LABS: HEMATOCRIT 33.8 % (37.0-47.0); HEMOGLOBIN 11.1 gm/dL (12.0-15.0); MCH 29.3 pg (26.0-34.0); MCHC 32.9 g/dL (28.0-37.0); MCV 89.1 fL (80.0-100.0); RBC 3.79 mil/uL (4.20-5.00); RDW 13.8 % (10.5-14.5); WBC 9.7 thou/uL (4.0-11.0)
[2018-12-29 06:01] LABS: CREATININE 0.9 mg/dL (0.6-1.0); POTASSIUM 3.4 mmol/L (3.5-5.1)
--- NOTE | 2018-12-29 14:37 | NUR ---
PACU GAVE REPORT ON PT'S PAIN, VS, AND DIET. MENTIONED HER PAIN AND THEY STARTED RIDDLER OPERATOR, ONCE ON FLOOR AND MY ASSESSMENT STARTED PT'S RIDDLER OPERATOR HANDLE WAS NOT WORKING, ANOTHER RN HELPED SET UP SUCCESSFUL PUMP TO THE PT AND FAMILY'S PEAC OF MIND. FAMILY ARE ALL LEANING OVER THE BED, GENTLE EDUCATION ON THE BENEFITS OF SUPPORT AND THAT THE PT COULD REST AND NOT FEEL NEED TO ENTERTAIN. GOT FAMILY SNACKS. THEY HELP BY COMING OUT TO TALK TO NURSE WHEN THERE ARE NEEDS OR SIMPLY QUESTIONS. PACU REPORTED OFF RIGHT HAND IV ATTEMPT MADE AND THAT HER HAND HAD BLOOD ON THE IV SITE. WILL CLEAN UP LATER WHEN SHE'S FEELING BETTER.
--- NOTE | 2018-12-30 03:25 | NUR ---
PT'S BP WAS LOW AT START OF SHIFT,SECOND HELPER ON DUTY NOTIFIED,ORDER NOTED TO GIVE 250 BOLUS,PT WAS REASSESSED AFTER THE BOLUS,BP STILL LOW,SECOND HELPER NOTIFIED,ANOTHER ORDER FOR 250 BOLUS NOTED AND CARRIED OUT.PT STILL ON CLAIM ADMINISTRATOR PUMP,DROWSY BUT EASILY AROUSABLE.PT ON 2L/NC,CAPNOGRPAHY MONITOR IN PLACE. CLEAR LIQUIDS ENCOURAGED.ONE EPISODE OF NAUSEA NOTED AT START OF SHIFT MANAGED WITH IV MED.PT REPOSITIONED WHILE IN BED.FAMILY AT BEDSIDE.CALL LIGHT WITHIN REACH.
[2018-12-30 05:53] LABS: HEMATOCRIT 32.8 % (37.0-47.0); HEMOGLOBIN 10.6 gm/dL (12.0-15.0); MCH 29.5 pg (26.0-34.0); MCHC 32.3 g/dL (28.0-37.0); MCV 91.2 fL (80.0-100.0); RBC 3.6 mil/uL (4.20-5.00); RDW 14.1 % (10.5-14.5); WBC 14.3 thou/uL (4.0-11.0)
[2018-12-30 06:08] LABS: CALCIUM 8.1 mg/dL (8.5-10.1); CREATININE 1.7 mg/dL (0.6-1.0); POTASSIUM 3.8 mmol/L (3.5-5.1)
[2018-12-30 07:40] VITALS: BP 82/47
--- NOTE | 2018-12-30 13:41 | NUR ---
Assumed pt care at 7am.Assessment completed.vss.Pt bp was 87/44 after bolus ivf given by noc rn.Dr Russo notified and he rounded on pt.New order noted.NS ivf initated at 200ml and bp rechecked at 1115 was 114/55.Full liq given at lunch and well tolerated.Family at bs most of the time today.Pt was up in chair for therapy for at least one hour before transfered to bed for lunch. Will continue to monitor.
--- NOTE | 2018-12-30 15:15 | NUR ---
CASE DISCUSSED WITH NURSING, DR FLORENCE AND THERAPISTS AND PT COULD BENEFIT FROM SOME ADDITIONAL REHAB BEFORE DC HOME. [facility] CONSULT REQUESTED AND RHINA DELVALLE SAW PT AND S/W SHE AND . [facility] COULD ACCEPT PT ON WEDNESDAY IF MEDICALLY STABLE FOR TRANSFER. NOTIFIED DR FLORENCE.
--- NOTE | 2018-12-30 17:01 | NUR ---
PATIENT SEEN BY REHAB ALARM ADJUSTER, RHINA, AND DETERMINED TO BE GOOD CANDIDATE FOR ACUTE REHAB. IF PATIENT IS MEDICALLY STABLE AND READY FOR DISCHARGE FROM ACUTE HOSPITAL OVER THIS WEEKEND (12/30 TO 12/31/18), PLEASE CONTACT REGISTRATION COORDINATORGUIDO AT [phone] TO INITIATE THE REHAB ADMISSION PROCESS.
[2018-12-30 17:04] VITALS: BP 97/46
[2018-12-30 19:39] VITALS: BP 99/53
[2018-12-31 06:01] VITALS: BP 100/50
[2018-12-31 07:13] LABS: ABSOLUTE NEUTROPHILS 16.2 thou/uL (1.4-8.2); BASOPHILS 0.1 % (0.0-2.0); HEMATOCRIT 24.7 % (37.0-47.0); LYMPHOCYTES 5.5 % (24.0-44.0); MCH 30.2 pg (26.0-34.0); MCHC 33.3 g/dL (28.0-37.0); MCV 90.6 fL (80.0-100.0); MONOCYTES 1.5 % (1.0-8.0); PLATELET COUNT 177 thou/uL (150-400); POLYS 92.9 % (36.0-66.0); RBC 2.72 mil/uL (4.20-5.00); RDW 14.3 % (10.5-14.5); WBC 17.5 thou/uL (4.0-11.0)
[2018-12-31 07:20] VITALS: BP 112/61
[2018-12-31 07:33] LABS: HEMOGLOBIN 8.2 gm/dL (12.0-15.0)
[2018-12-31 07:35] LABS: CALCIUM 7.8 mg/dL (8.5-10.1); CREATININE 1.4 mg/dL (0.6-1.0); POTASSIUM 3.4 mmol/L (3.5-5.1)
--- NOTE | 2018-12-31 07:52 | NUR ---
ASSUMED CARE AT 1900, ASSESSMENT COMPLETED. PT REPORTS MILD PAIN AT MIDLINE INCISION, BUT C/O WORSE PAIN IN LEFT SHOULDER/ARM--GIVEN TRAMADOL AT HS WHICH PT REPORTED HELPED HER SLEEP/RELIEVE PAIN. DENIED NAUSEA OR SOB OVERNIGHT. LUNG SOUND CLEAR BUT DIMINISHED, STILL ON 2L O2 TO MAINTAIN SATS. ABD PAIN WORSE WITH TURNS SIDE TO SIDE, PREVENA INTACT. IV FLUIDS INFUSING, SCD'S ON, PT CALLS APPROPRIATELY FOR ASSISTANCE/NEEDS. NO OTHER CONCERNS, SHIFT REPORT GIVEN AT 0700.
--- NOTE | 2018-12-31 11:00 | NUR ---
ASSUMED CARE OF PT AT 0700. ASSESSMENT COMPLETED. A&O,X4. C/O ABD INCISION PAIN AND SHOULDER PAIN, PAIN MEDS GIVEN ORDERED. ABD MIDLINE PREVENA INTACT. 2 L NC, NO HOME OXYGEN USE NOTED. HYPOACTIVE BOWEL SOUNDS, NO BM SINCE SURGERY, TOLERATING CLEARS DIET. DAVILA CATHETER IN PLACE. FAMILY AT BEDSIDE. WILL CONTINUE TO MONITOR.
--- NOTE | 2018-12-31 16:40 | NUR ---
PT REPORTING LEFT SHOULDER PAIN, PAIN MEDS GIVEN ORDERED. FAMILY CONCERNED ABOUT PT HX OF PE [address] HEART NOTIFIED[address] DR[address] MEMBRENO AT BEDSIDE, AWARE OF SHOULDER PAIN, MOST LIKELY FROM SURGICAL PROCEDURE. WILL CONTINUE TO MONITOR.
--- NOTE | 2018-12-31 16:50 | NUR ---
REMOVED DAVILA CATHETER ACCORDING TO PROTOCOL. PT TOLERATED PROCEDURE WELL. 500 ML YELLOW OUTPUT NOTED.
[2018-12-31 20:00] VITALS: BP 140/63
[2019-01-01 00:50] VITALS: BP 147/70
[2019-01-01 04:30] VITALS: BP 147/74
[2019-01-01 06:40] LABS: ABSOLUTE NEUTROPHILS 13.8 thou/uL (1.4-8.2); BASOPHILS 0.1 % (0.0-2.0); EOSINOPHILS 0.4 % (0.0-3.0); HEMATOCRIT 23.4 % (37.0-47.0); HEMOGLOBIN 7.7 gm/dL (12.0-15.0); LYMPHOCYTES 5.5 % (24.0-44.0); MCH 29.7 pg (26.0-34.0); MONOCYTES 2.8 % (1.0-8.0); PLATELET COUNT 194 thou/uL (150-400); POLYS 91.2 % (36.0-66.0); RDW 14.4 % (10.5-14.5); WBC 15.1 thou/uL (4.0-11.0)
[2019-01-01 06:48] LABS: CALCIUM 8.1 mg/dL (8.5-10.1); CREATININE 0.9 mg/dL (0.6-1.0); MAGNESIUM 1.5 mg/dL (1.8-2.4); POTASSIUM 3.5 mmol/L (3.5-5.1)
--- NOTE | 2019-01-01 08:18 | NUR ---
ASSUMED CARE AT 1900, ASSESSMENT COMPLETED. PT C/O SEVERE PAIN IN SHOULDERS AND BACK, WITH MODERATE PAIN IN ABD; ALTERNATED PAIN MED OPTIONS OVERNIGHT. NO NAUSEA. EASILY SOB WITH EXERTION, STAYING ON 2L O2 NC; DURING THE NIGHT PT BECAME ANXIOUS, PULLING AT SCD'S, AND THROWING OFF COVERS. HER O2 WAS OFF AND SHE WAS SATTING AROUND 86%, PUT O2 BACK ON AND IT WAS 3-4 MINUTES BEFORE HER SATS RETURNED TO LOW 90'S. LUNG SOUNDS NOW HAVE INE CRACKLES, AND PT NOTED TO HAVE CHOKED ON WATER, CONCERNED FOR POSSIBLE ASPIRATION OR FLUID OVERLOAD, OBTAINED ORDER FOR CHEST XRAY THIS AM. ASSISTED TO BSC 4 TIMES OVERNIGHT, PT WEAK, SLEPT POORLY R/T BACK AND SHOULDER PAIN. HAD TO LEAVE SCD'S OFF LAST HALF OF SHIFT PT KEPT GETTING AGITATED WITH THEM ON. GAVE ONE DOSE OF PO POTASSIUM AT HS PER ELECTROLYTE PROTOCOL. NO OTHER CONCERNS, SHIFT REPORT GIVEN AT 0700.
--- NOTE | 2019-01-01 14:04 | NUR ---
ASSESMENT COMPLETED. VSS. A/O. C/O OF PAIN OFF AND ON MANAGED BY MEDS ORDERED. PREVENA INTACT. UP WITH ASSIST. NOTED BLOODY STOOLS X2 THIS SHIFT. DR. ANTOINE HEART MADE AWARE. MONITORING LABS. BP STABLE. POOR APPETITE. PT RESTING IN BED AT THIS TIME. WFAMILY AT BEDSIDE. WILL CONT. TO MONITOR.
[2019-01-01 18:18] VITALS: BP 134/62
[2019-01-01 20:12] VITALS: BP 129/57
[2019-01-02 05:00] VITALS: BP 156/67
[2019-01-02 05:01] LABS: BASOPHILS 0.1 % (0.0-2.0); EOSINOPHILS 1.2 % (0.0-3.0); HEMATOCRIT 24.2 % (37.0-47.0); LYMPHOCYTES 7.5 % (24.0-44.0); MCH 29.8 pg (26.0-34.0); MCHC 33.1 g/dL (28.0-37.0); MCV 90.1 fL (80.0-100.0); MONOCYTES 3.7 % (1.0-8.0); PLATELET COUNT 224 thou/uL (150-400); POLYS 87.5 % (36.0-66.0); RBC 2.68 mil/uL (4.20-5.00); RDW 14.6 % (10.5-14.5); WBC 12.6 thou/uL (4.0-11.0)
[2019-01-02 05:11] LABS: CREATININE 0.8 mg/dL (0.6-1.0)
[2019-01-02 07:37] VITALS: BP 173/77
--- NOTE | 2019-01-02 08:23 | NUR ---
ASSUMED CARE AT 1900, ASSESSMENT COMPLETED. PT UP MULTIPLE TIMES FROM CHAIR TO BSC HAVING MIXED URINE AND SMALL AMOUNT OF RAY BLOOD MIXED WITH LOOSE STOOL. DENIES NAUSEA OR SOB. LUNG SOUNDS ARE STILL CONGESTED WITH CRACKLES, O2 SATS LOW 90'S ON RA. CONTINUES TO C/O LEFT SHOULDER PAIN, STATING IT IS WORSE THAN THE MIDLINE INCISION SITE. PT'S MENTATION HAS BEEN SLOWLY DECLINING OVER THE PAST 3 SHIFTS, BEING MUCH SLOWER TO ANSWER, SOMETIMES ANSWERING INAPPROPRIATELY; PER FAMILY, SHE IS MAKING VERY ODD STATEMENTS THIS AM, THINKING SHE IS IN THE CLOSET AND NEEDS TO GET DRESSED TO GET UP TO TOILET, VERY FORGETFUL WHEN ANSWERING SIMPLE QUESTIONS LIKE HER BIRTHDAY, AND THEN FOCUSING ON A PREVIOUS QUESTION RATHER THAN CURRENT QUESTIONS (ASKED BIRTHDAY THEN YEAR, BUT KEPT REPEATING HER BIRTHDAY). BP HAS BEEN INCREASING OVERNIGHT, WORSE THIS AM WHEN AT SHIFT CHANGE SHE REPORTED SEVERE L SHOULDER PAIN. STOPPED IV FLUIDS IN CASE THE LEFT UPPER ARM IV HAD INFILTRATED AT THE SHOULDER. SHIFT REPORT GIVEN AT 0700, WITH PARTICULAR CONCERNS NOTED TO DAY RN FOR FOLLOW UP WITH PHYSICIAN.
--- NOTE | 2019-01-02 14:32 | NUR ---
AWAKE ALERT AND PLEASANTLY CONFUSED. FAMILY AT BEDSIDE. UP TO CHAIR EVERY 2 HOURS FOR ONE HOUR ENCOURAGED AMBULATION AND INCENTIVE SPIROMETRY. VERY POOR COUGH EFFORT. ABD MIDLINE PROVENA DRESSING INTACT WITHOUT DRAINAGE. IV LEFT UPPER ARM. DR. HEART NOTIFIED ABOUT TRANSFER TO REHAB AND DISCHARGE TO REHAB CANCELLED. POOR APPETITE.
--- NOTE | 2019-01-02 16:39 | NUR ---
Following for d/c planning needs. Pt has been evaluated by [facility] and accepted. Pt is not medically for d/c to [facility] today. Will remain available to assist as needed.
[2019-01-02 17:42] VITALS: BP 154/69
--- NOTE | 2019-01-02 18:41 | NUR ---
ARRIVED FROM PACU. AROUSES TO VERBAL STIMULATION. IV INFUSING WITHOUT DIFFICULTY. FAMILY AT BEDSIDE. ABDOMINAL LAP SITES CLEAN AND DRY. ICE CHIPS TAKEN WITHOUT DIFFICULTY
[2019-01-02 22:31] VITALS: BP 166/84
[2019-01-03 05:27] LABS: HEMATOCRIT 27.4 % (37.0-47.0); HEMOGLOBIN 8.9 gm/dL (12.0-15.0); MCH 28.8 pg (26.0-34.0); MCHC 32.4 g/dL (28.0-37.0); MCV 89.1 fL (80.0-100.0); RBC 3.07 mil/uL (4.20-5.00); RDW 14.3 % (10.5-14.5); WBC 12.5 thou/uL (4.0-11.0)
[2019-01-03 05:37] LABS: PLATELET COUNT 309 thou/uL (150-400)
[2019-01-03 05:40] LABS: CALCIUM 9.3 mg/dL (8.5-10.1); CREATININE 0.8 mg/dL (0.6-1.0); MAGNESIUM 1.4 mg/dL (1.8-2.4)
[2019-01-03 05:42] VITALS: BP 163/73
[2019-01-03 06:32] LABS: ABSOLUTE NEUTROPHILS 9.4 thou/uL (1.4-8.2)
[2019-01-03 06:33] LABS: PLATELET ESTIMATE NORMAL; POLYCHROMASIA 1+
[2019-01-03 07:49] LABS: URINE BILIRUBIN NEGATIVE (Negative); URINE BLOOD NEGATIVE (Negative); URINE CLARITY CLEAR; URINE COLOR YELLOW; URINE GLUCOSE-RANDOM* NEGATIVE (Negative); URINE KETONES 1+ (Negative); URINE LEUKOCYTES-REFLEX NEGATIVE (Negative); URINE NITRITE-REFLEX NEGATIVE (Negative); URINE PROTEIN (DIPSTICK) NEGATIVE (Negative); URINE SPECIFIC GRAVITY 1.015 (1.005-1.035); URINE UROBILINOGEN 0.2 E.U./dl (0.2-1.0)
[2019-01-03 08:28] VITALS: BP 165/93
--- NOTE | 2019-01-03 10:07 | PATH ---
[facility] [place] [address] PATHOLOGY RPT PROCEDURE Name: DIONNE MCMAHAN Room #: 430-P ADM IN M.R.#: [id number] ������������������ Admission: 12/27/18 ������������������ Date of : 32 Discharge: Report #: [id number] Path Case #: [id number] L[facility] Accession Number: [id number] . 01 Material submitted: . PART A: SIGMOID COLON AND LEFT ADNEXA, SUTURE REES PROXIMAL PART B: APPENDIX . 01 Clinical history: . Sigmoid diverticulitis. . 02 Diagnosis: A. Large intestine, sigmoid colon, resection: - Acute diverticulitis with abscess formation, multiple foci. - Extensive diverticulosis. - Margins of resection free of dysplasia or malignancy as well as inflammation. - Seven reactive lymph nodes. . Ovary and fallopian, left adnexa, left salpingo-oophorectomy: - Fallopian tube adhesed to serosa of sigmoid colon associated with fibrosis and serositis. - Ovary and fallopian showing extensive endosalpingiosis. - Ovary with atrophic changes. . B. Appendix, appendectomy: - Congested appendix with reactive changes. - Fibrous obliteration of the tip. (IUV/db; 01/02/2019) LBQ/01/02/2019 . 02 Electronically signed: . Velma Carbajal MD, Pathologist NPI- [id number] . 01 Gross description: . A. Received in formalin labeled "Dionne Mcmahan, sigmoid colon and left adnexa suture rees proximal" is an oriented somewhat tortuous segment of large bowel which measures 16.3 cm in length and ranges from 3.0-4.6 cm in diameter. There is a suture at the proximal margin, which is closed with a staple line. The distal margin is also closed with a staple line, which appears slightly healed, and is possibly consistent with a prior surgery. There is an area of pink-sharma adhesions on the serosa, measuring 2.3 x 1.5 cm. A pink-sharma fallopian tube is identified at the area of adhesions measuring 4.2 cm in length and 0.6 cm in diameter. The fallopian tube displays numerous thin walled cysts ranging from 0.4-0.8 cm in greatest dimension. The area of adhesions is located 4.7 [place] [address] PATHOLOGY RPT PROCEDURE Name: DIONNE MCMAHAN BRANDIE Room #: 430-P [facility] IN M.R.#: [id number] ������������������ Admission: 12/27/18 ������������������ Date of : 32 Discharge: Report #: [id number] Path Case #: [id number] margin and 9.1 cm from the distal margin. An ovary is not grossly identified. Distal to the area of adhesions is a full-thickness defect measuring 2.0 x 1.2 cm. The defect is located 11.1 cm from the proximal margin and 4.2 cm from the distal margin. The specimen is opened to reveal sharma-brown edematous mucosa without polyps or masses identified. Upon sectioning, multiple diverticula are identified ranging from 0.6-0.9 cm in greatest dimension. No perforated diverticula are identified. Multiple possible lymph nodes are identified in the pericolonic fat, ranging from 0.4-0.5 cm in greatest dimension. Hole Digger Operator sections are submitted as follows: . A1 proximal margin A2 distal margin A3-A5 entire fallopian tube A6 sales representative metals full-thickness defect A7 serosa with adhesions A8-A9 sales representative metals diverticula A10-A11 sales representative metals possible lymph nodes . B. Received in formalin labeled "Mcmahan, Dionne, appendix" is an appendectomy specimen measuring 5.0 cm in length and 0.7 cm in diameter. There is an attached portion of mesoappendix measuring 4.1 x 1.5 x 0.9 cm. The serosa is sharma-brown and smooth. The proximal margin is closed with a staple line. The specimen is sectioned to reveal a luminal diameter of 0.1-0.3 cm. No perforations or fecaliths are identified. Hole Digger Operator sections are submitted in cassette B1, with the proximal margin inked black. ([facility];01/01/2019) . SYC/SYC . 02 Pathologist provided ICD-10: K57.32, K57.30, N94.89, K65.8, K38.8 . 02 CPT . 132070, 210651, 637455 Specimen Comment: A courtesy copy of this report has been sent to Specimen Comment: [phone], , . Specimen Comment: Report sent to ,DR MENDEZ / DR FLORENCE Specimen Comment: A duplicate report has been generated due to demographic updates. Performed at: [address] [facility], [place], [place] [id number] MD Marcel Horton MD Phone: [phone] Performed at: [address] [id number] MD Velma Carbajal MD Phone: [phone]
[2019-01-03] MEDS ORDERED: MIRALAX17 GM PO (11:57)
[2019-01-03] MEDS ORDERED: FLORANEX GRANU1 EACH PO (11:57)
[2019-01-03] MEDS ORDERED: ACEROLA C500 MG PO (11:57)
[2019-01-03] MEDS ORDERED: MAGOX 400400 MG PO (11:57)
[2019-01-03] MEDS ORDERED: CEFUROXIME500 MG PO (11:57)
[2019-01-03] MEDS ORDERED: ALPRAZOLAM 0.0.25 M1 PO (11:57)
[2019-01-03] MEDS ORDERED: COLACE 100 MG100 MG PO (11:57)
[2019-01-03] MEDS ORDERED: K-DUR 20 MEQ T20 MEQ PO (11:57)
[2019-01-03] MEDS ORDERED: VITAMIN D1000 UNI1 PO (11:57)
[2019-01-03] MEDS ORDERED: ENOXAPARIN40 MG/0.1 SUBQ (11:57)
[2019-01-03] MEDS ORDERED: METRONIDAZOLE500 M4 PO (11:57)
[2019-01-03] MEDS ORDERED: GENICIN500 MG PO (11:57)
[2019-01-03] MEDS ORDERED: TUMS PO (11:57)
--- NOTE | 2019-01-03 13:04 | NUR ---
PLAN IS FOR PT TO TRANSFER TO [facility] THIS AFTERNOON. DTRS ND SPOUSE AT BEDSIDE AND AWARE AND AGREEABLE TO THE PLAN.
--- NOTE | 2019-01-11 08:49 | HC ---
[facility] [place] [address] CONSULTATION Name: DIONNE MCMAHAN Room #: 430-P [facility] IN M.R.#: [id number] Admission: 12/27/18 ������������������ Attend Phys: Saleem Russo MD Discharge: 01/03/19 ������������������ Date of : 32 Report #: [id number] THIS REPORT FOR: //name// CC: Saleem Simental DATE OF SERVICE: 12/27/2018 REFERRING PROVIDER: Saleem Russo MD REASON FOR CONSULT: Diverticulitis. HISTORY OF PRESENT ILLNESS: The patient is an 88-year-old female who has been admitted for multiple bouts of sigmoid diverticulitis and has tried numerous outpatient bowel preps to proceed with definitive surgical management, which have all failed due to extreme nausea and vomiting and dehydration at home. As such, the patient has been admitted due to dehydration and I am asked to evaluate to assist in bowel prep in anticipation of proceeding to the operating room in the next couple of days. PAST MEDICAL HISTORY: Multiple bouts of acute sigmoid diverticulitis, prior open cholecystectomy, prior pulmonary embolism, hypertension, bilateral lower extremity neuropathy, anxiety with depression, GERD, and hypercholesterolemia. HOME MEDICATIONS: Xanax, aspirin, calcium, vitamin D3, Flonase, glucosamine, Claritin, multivitamin, Protonix, Ultram, triamterene/hydrochlorothiazide, gabapentin, alendronate, MiraLax, lovastatin, methotrexate, and prednisone. ALLERGIES: Extensive, including AMOXICILLIN, CEFDINIR, LEVAQUIN, AMITIZA, PROMETHAZINE, and SULFA. FAMILY HISTORY: Reviewed and noncontributory. SOCIAL HISTORY: The patient does not utilize tobacco, alcohol or illicit drugs. REVIEW OF SYSTEMS: GENERAL: The patient denies nocturnal fevers or chills. HEENT: No change in vision, change in hearing. NECK: No swelling or difficulty swallowing. HEART: No chest pain or palpitations. LUNGS: No cough or shortness of breath. ABDOMEN: Mild abdominal discomfort and nausea. GENITOURINARY: No dysuria or hematuria. ENDOCRINE: No polyuria, polydipsia. HEMATOLOGIC: No history of bleeding or easy bruising. EXTREMITIES: No history of weakness or limited range of motion. [facility] [address] [place] [address] CONSULTATION Name: DIONNE MCMAHAN Room #: 430-P [facility].#: [id number] Admission: 12/27/18 ������������������ Attend Phys: Saleem Russo MD Discharge: 01/03/19 ������������������ Date of : 32 Report #: [id number] NEUROLOGIC: No history of syncope or near syncopal episodes. SKIN AND INTEGUMENT: No history of abnormal lesions or moles. PSYCHIATRIC: History of anxiety and depression. PHYSICAL EXAMINATION: VITAL SIGNS: Temperature 36.8, pulse 82, respirations 16, blood pressure 142/78. GENERAL: Alert, in no acute distress. HEENT: Normocephalic, atraumatic. Pupils equal, round, reactive to light. NECK: Supple, without lymphadenopathy. Trachea midline. HEART: Regular rate and rhythm. LUNGS: Clear to auscultation bilaterally. ABDOMEN: Soft, nondistended, minimally tender to palpation in the lower abdomen, but no focal point tenderness. GENITOURINARY: Normal external female genitalia. EXTREMITIES: No clubbing, cyanosis or edema. NEUROLOGIC: Cranial nerves 2-12 are grossly intact. PSYCHIATRIC: Normal mood and affect. SKIN AND INTEGUMENT: No abnormal lesions or moles. LABORATORY AND X-RAY DATA: Labs are still pending. No imaging. ASSESSMENT AND PLAN: An 88-year-old female with known sigmoid diverticular stricture and difficulty with outpatient prep due to nausea and vomiting and dehydration. The patient has been admitted and is getting IV fluids for gentle rehydration and we will initiate a gentle GoLYTELY prep as she does not tolerate magnesium products. Hopefully, over the course of the next couple of days, she will adequately prep and we can proceed with a laparoscopic, possible open sigmoid colectomy, which has been discussed with the patient in detail on numerous prior occasions and she is agreeable to proceed. I sincerely appreciate this consult. We will follow along and leave any further recommendations in the patient's chart as appropriate. ��������������������������������������������� <ELECTRONICALLY SIGNED> ���������������������������������������� By: Raissa Wild MD, FACS ��������������������������������������������� 01/11/19 [id number] [id number] Raissa Wild MD, FACS /nt
--- NOTE | 2019-01-11 08:49 | O ---
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 POSTOPERATIVE DIAGNOSES: 1. 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 2. Incarcerated incisional ventral hernia. PROCEDURES PERFORMED: 1. Laparoscopic converted to open sigmoid colectomy. 2. Open mobilization of splenic flexure. 3. Appendectomy. 4. Resection of left adnexa. 5. Extensive lysis of adhesions. 6. Suture repair of an incarcerated incisional ventral hernia. SURGEON: Raissa Wild M.D. LVN: Venu Chavez M.D. ANESTHESIA: General endotracheal anesthesia. ESTIMATED BLOOD LOSS: Minimal (less than 20 mL). COMPLICATIONS: None appreciated. SPECIMENS: 1. Sigmoid colon with a suture marking proximal including the left adnexa intimately adherent. 2. Appendix to pathology. INDICATIONS: The patient is an 88-year-old female with a near complete obstruction of the sigmoid colon secondary to chronic recurrent bouts of sigmoid diverticulitis. The patient has been admitted for gentle bowel prep and has had clear watery stools and as such indication was for the above-mentioned procedures today with findings of a significant inflammatory process in the left pelvic region and desmoplastic changes requiring conversion to an open procedure due to inability to even grasp the woody thickened colon. [facility] [address] [place] [address] OPERATIVE REPORT Name: DIONNE MCMAHAN Room #: 430-P [facility] IN .R.#: [id number] Admission: 12/27/18 ������������������ Attend Phys: Saleem Russo MD Discharge: 01/03/19 ������������������ Date of : 32 Report #: [id number] DESCRIPTION OF PROCEDURE: After explaining the risks, benefits and alternatives of the procedure with the patient in detail in the preoperative holding area and obtaining written consent, the patient was brought to the operating room and placed supine on the operating room table. After conducting a thorough timeout procedure verifying correct patient and procedure, the patient was given general endotracheal anesthesia. Once adequate anesthesia was obtained, her SCDs were hooked up to pneumatic compression device. She was given a preoperative dose of antibiotics in line with the SCIP protocol. The patient's abdomen was then prepped and draped in the standard surgical sterile fashion. A 5 mL of 0.5% Marcaine with epinephrine was used to anesthetize the skin in the right mid abdomen lateral to the umbilicus and 1 cm cephalad. A #15 bladed scalpel was used to create a small skin randa at this location. A 5 mm Visiport was placed over 0-degree 5-mm laparoscope and was introduced through this incision site. Once intra-abdominal placement was verified visually, the obturator for the trocar and laparoscope were both removed and the abdomen was insufflated to 15 mmHg using carbon dioxide gas. The laparoscope was changed to a 5-mm 30-degree laparoscope, which was reintroduced through this trocar. The entire abdomen was evaluated to ensure no injury upon entry. We immediately identified a thickened inflamed colon in the left lower quadrant. I now placed two additional 5 mm trocars. One was placed in left upper quadrant and second in the right lower quadrant, both under direct vision after anesthetizing the skin at each location with 5 mL of 0.5% Marcaine with epinephrine and I had created small skin nicks using #15 bladed scalpel. The patient was now placed in Trendelenburg position with the left side elevated and I proceeded to sweep the small bowel into the upper abdomen. Unfortunately, a loop of small bowel was intimately plastered to the desmoplastic process in the left lower quadrant. Significant attempts at grasping the colon and retracting it cephalad were performed and unfortunately the colon was so chronically inflamed and thickened, laparoscopic graspers would not adequately grasp the colon for manipulation. In addition, it was so intimately plastered to the left adnexa and pelvic side wall, the decision was made to convert to an open procedure at this juncture. The abdomen was desufflated. Trocars were all removed. A #10 bladed scalpel was used to create a longitudinal midline incision from the suprapubic location to the supraumbilical location, carried to the left of the umbilicus. Electrocautery was used to carry this down through skin and subcutaneous tissues to ensure hemostasis until I arrived upon the fascia, which was opened vertically and a finger was placed in the abdomen to facilitate opening and prevention of injury to the underlying structures. We now proceeded to free the adhesed loop of small bowel with Metzenbaum scissor dissection so as to prevent serosal injury. The small bowel was run in its entirety showing no evidence of pathology at this juncture. The appendix from the cecum was also intimately adherent to the sigmoid colon. This was gently freed and as it was thickened and hyperinjected, we did perform an appendectomy using a blue load 75 mm AUDELIA stapler at this juncture. The EnSeal X1 device was used to transect the mesoappendix for hemostasis and this was passed off the field as appendiceal specimen. We now [facility] [address] [place] [address] OPERATIVE REPORT Name: DIONNE MCMAHAN Room #: 430-P [facility] IN M.R.#: [id number] Admission: 12/27/18 ������������������ Attend Phys: Saleem Russo MD Discharge: 01/03/19 ������������������ Date of : 32 Report #: [id number] turned our attention to dissection of the sigmoid colon. Electrocautery was used to take down the adhesed sigmoid from the pelvic side wall, being careful to avoid the ureter. The sigmoid colon itself was extremely tortuous and a knuckle was plastered to the sacral promontory. Ultimately, after nearly 2 hours of dissection we were able to free the entire sigmoid colon and elevate it. There was such a long segment involved that was identified at this juncture due to the tortuosity. The perirectal side dior were scored with electrocautery and a finger was passed through the mesorectum at the juncture of the rectosigmoid. A Contour stapler with a green load was now placed through this window, clamped and fired transecting the bowel at the rectosigmoid juncture. The staple line was elevated and I proceeded to take down the mesentery with the EnSeal X1 device for hemostasis coming cephalad. The ureter was identified, preserved, and uninjured at this juncture, Once we were cephalad to all the inflammatory process, this was stapled off with another firing of the AUDELIA-75 mm stapler. The diseased sigmoid colon was passed off the field as specimen. Attempts at reapproximating the two staple lines showed that they would be under tension and as such we did perform a full mobilization of the splenic flexure using electrocautery to take down the white line of Toldt and up over the splenic flexure to allow significant laxity on the anastomosis. It should be noted that upon taking down all the adhesions in the left pelvic side wall, what appeared to be the left adnexa was intimately plastered to the sigmoid process and this was resected with the EnSeal X1 device at what appeared to be the fallopian tube and broad ligament. We now proceeded to size the descending colon by using the auto pursestring suture device on the stapled end of colon and using curved Jones scissors to remove the staple line. Allis clamps were used to open the colon and this showed a 33 EEA stapler would fit nicely within the colon. Dr. Chavez then broke scrub and went down below in the lithotomy position where he opened the drapes and size the rectal stump, which again showed a size 33 EEA stapler to easily fit. We therefore took the 33 EEA anvil, placed it in the open end of bowel and I tied the pursestring suture down around the base of the anvil. Dr. Chavez proceeded to dilate the rectal stump, placed a 33 EEA stapler up the rectal stump where he deployed the spike through the middle portion of the staple line and I mated the spike to the anvil. He then ratcheted down the stapler while I ensured no twisting to the colon and he fired the stapler. Upon removal of the stapler we had two beefy circumferential anastomotic rings. The pelvis was filled with normal saline and I clamped the bowel proximal to the anastomosis and used a rigid proctoscope to insufflate across the anastomosis showing no bubbling thereby signifying a negative leak test. The proctoscope was removed, normal saline was suctioned out. I now copiously irrigated the intra-abdominal domain and the irrigant ran clear throughout. I now closed the midline fascial wound using looped #1 PDS suture in standard running fashion. This effectively performed a primary suture repair of an incarcerated incisional hernia as we did encounter 3 separate hernias from a prior incision site containing omentum at the outset of conversion to an open procedure. Skin was closed with skin swathi and a topical Prevena wound VAC device was placed. At the end of the procedure all instrument, needle and [facility] [address] [place] [address] OPERATIVE REPORT Name: MARJDIONNE BRANDIE Room #: 430-P [facility] IN M.R.#: [id number] Admission: 12/27/18 ������������������ Attend Phys: Saleem Russo MD Discharge: 01/03/19 ������������������ Date of : 32 Report #: [id number] sponge counts were correct. The patient tolerated the procedure without incident, was awakened in the operating room, and transitioned to the recovery room in stable condition with no apparent complications. ��������������������������������������������� <ELECTRONICALLY SIGNED> ���������������������������������������� By: Raissa Wild MD, FACS ��������������������������������������������� 01/11/19 0849 [id number] Raissa Wild MD, FACS /nt
== END 2019-01-03 15:20 | DRG 329 ==
LOC: 4E 11:01 → ENTRNSPT 01-03 14:48 → EDTRNSPTSTS 01-03 14:57 → 4E 01-03 15:20
PROVIDERS: Internal Medicine; Nurse Practitioner; Nurse Practitioner Family; Surgery; ADMIT Hospitalist
PROC: 0WQF0ZZ Repair Abdominal Wall, Open Approach (ICD-10-PCS; principal; 2018-12-29)
PROC: 0DNG0ZZ Release Left Large Intestine, Open Approach (ICD-10-PCS; principal; 2018-12-29)
PROC: 0DTJ0ZZ Resection of Appendix, Open Approach (ICD-10-PCS; principal; 2018-12-29)
PROC: 0UB10ZZ Excision of Left Ovary, Open Approach (ICD-10-PCS; 2018-12-29)
PROC: 0UB60ZZ Excision of Left Fallopian Tube, Open Approach (ICD-10-PCS; 2018-12-29)
PROC: 0DJD4ZZ Inspection of Lower Intestinal Tract, Percutaneous Endoscopic Approach (ICD-10-PCS; 2018-12-29)
PROC: 0DBN0ZZ Excision of Sigmoid Colon, Open Approach (ICD-10-PCS; 2018-12-29)
DX: K57.32 Diverticulitis of large intestine without perforation or abscess without bleeding (principal); G92 Toxic encephalopathy; J96.01 Acute respiratory failure with hypoxia; J18.9 Pneumonia, unspecified organism; K43.0 Incisional hernia with obstruction, without gangrene; N17.9 Acute kidney failure, unspecified; D62 Acute posthemorrhagic anemia; K56.7 Ileus, unspecified; I10 Essential (primary) hypertension; I95.81 Postprocedural hypotension; K21.9 Gastro-esophageal reflux disease without esophagitis; F32.9 Major depressive disorder, single episode, unspecified; G62.9 Polyneuropathy, unspecified; E78.5 Hyperlipidemia, unspecified; F41.9 Anxiety disorder, unspecified; Z96.651 Presence of right artificial knee joint; M62.84 Sarcopenia; E83.42 Hypomagnesemia; M19.012 Primary osteoarthritis, left shoulder; Z88.1 Allergy status to other antibiotic agents; Z88.2 Allergy status to sulfonamides; Z88.8 Allergy status to other drugs, medicaments and biological substances; Z90.49 Acquired absence of other specified parts of digestive tract; Z79.82 Long term (current) use of aspirin; Z79.899 Other long term (current) drug therapy; Z53.31 Laparoscopic surgical procedure converted to open procedure
CPT/HCPCS: 10783; 50010; 50093; 50101; 50249; 50290; 50386; 50455; 50525; 50555; 50804; 51398; 51412; 51489; 51708; 51712; 52265; 53307; 54118; 56462; 56525; 56526; 56527; 56530; 56753; 57092; 57242; 62110; 62900; 70005

== ENCOUNTER 2019-01-02 13:48 | Inpatient (IN) | payer OTHER ==
[~2019-01-02] VITALS: Ht 160 cm; Wt 63.8 kg
--- NOTE | ~2019-01-02 | PLAN ---
[facility] [place] [address] REHAB UNIT PLAN OF CARE Name: DIONNE MCMAHAN Room #: 514-P ADM IN M.R.#: [id number] Admission: 01/03/19 ������������������ Attend Phys: Tien Quick MD Discharge: ������������������ Date of : 32 Report #: [id number] THIS REPORT FOR: //name// CC: Tien Simental DATE OF SERVICE: 01/06/2019 PROGRESS NOTE/OVERALL PLAN OF CARE SUBJECTIVE: The patient is seen back today in followup. She is in no distress. Temperature 97.5, pulse 82, respirations 16, blood pressure 140/66. She has been working in therapies with transfers, min assist. Gait min assist 100 feet with a front-wheeled walker. In occupational therapy, lower body dressing is max assist, upper body dressing is supervision. In speech therapy, she has mild to moderate comprehensive deficits. She is on mechanical soft diet with thin liquids. She has moderate to severe cognitive deficits. Severe memory deficits. ASSESSMENT: 1. Recurrent diverticulitis, status post open sigmoidectomy, 12/29/2018. 2. Acute toxic metabolic encephalopathy. 3. Acute blood loss anemia, postop. 4. Postop pneumonia versus atelectasis. 5. Medical complexity with generalized debilitation. 6. Postop symptomatic hypotension, resolved. 7. Hypertension. 8. Depression, anxiety. 9. Premorbid peripheral neuropathy. 10. Gastroesophageal reflux disease. PLAN: The overall plan of care is based on the preadmission screen, post-admission physician evaluation and information garnered from therapy assessments. 1. Estimated length of stay is probably going to be at least 2-3 weeks pending progress. 2. Medical prognosis is reasonably good. 3. Anticipated interventions includes the interdisciplinary acute inpatient rehabilitation program with PT, OT and speech, rehabilitation nursing assisting regarding medication management, skin care prophylaxis, bowel and bladder issues and nursing education. Case management will be involved as well as the interdisciplinary acute rehabilitation team and the travel sales consultant physicians. 4. Anticipated functional outcomes would be for her to hopefully become modified independent at least at the walker level with improvement in cognition and ADL independence. 5. Discharge destination would be back home with [place] [address] REHAB UNIT PLAN OF CARE Name: DIONNE MCMAHAN Room #: 514-P [facility].#: [id number] Admission: 01/03/19 ������������������ Attend Phys: Tien Quick MD Discharge: ������������������ Date of : 32 Report #: [id number] her and there is a closely involved daughter that is here. 6. Expected therapy by discipline includes PT, OT and speech 1 hour per day each five days a week throughout the duration of the acute inpatient rehabilitation stay. ��������������������������������������������� ���������������������������������������� By: ��������������������������������������������� 0820 2522 Tien Quick MD /PMT
--- NOTE | ~2019-01-02 | H ---
[facility] [place] [address] HISTORY AND PHYSICAL Name: DIONNE MCMAHAN Room #: 514-P ADM IN M.R.#: [id number] Admission: 01/03/19 ������������������ Attend Phys: Tien Quick MD Discharge: ������������������ Date of : 32 Report #: [id number] THIS REPORT FOR: //name// CC: Tien Simental DATE OF SERVICE: 01/03/2019 HISTORY OF PRESENT ILLNESS: The patient is an 88-year-old white female originally presented to [facility] on 12/27/2018 with recurrent diverticulitis, underwent open sigmoidectomy due to the recurrent diverticulitis with sigmoid stricture on 12/29/2018. Postoperatively, she had some problems with hypotension and dizziness. She was noted to develop acute hypoxic respiratory failure with chest imaging studies suggesting possible bibasilar pneumonia. She had mild postoperative ileus, postoperative anemia, acute kidney injury. She was noted to have a toxic metabolic encephalopathy that is still definitely present. She did have some postoperative left upper extremity shoulder pain, which was noted to improve with left shoulder x-ray showing some degenerative arthritis. She was noted to have a significant decline in her functional abilities and has been admitted now for acute in-hospital inpatient rehabilitation. PAST MEDICAL HISTORY: Lower extremity neuropathy, hypertension, bronchitis, cholecystectomy, dyslipidemia, gastroesophageal reflux disease, right total knee replacement, colonoscopy, and skin cancer removed from the left arm. ALLERGIES: SHE HAS MULTIPLE ALLERGIES, PLEASE SEE THE NOTED. MEDICATIONS: Please see the full medication listing. This includes vitamins, herbals, and supplements per report. SOCIAL HISTORY: The patient lives in a ranch style house with her , was premorbidly independent for basic ADLs and IADLs, although her tended to give her some assistance. She did not stick to a schedule very well and the will be involved as far as making sure she did her medications. Daughter did not note any significant cognitive deficits premorbidly. The patient would use an assistive device such as a walker on rare occasion. She has 2 stairs to enter and then was living on one level. REVIEW OF SYSTEMS: Did not offer any current complaints of chest pain, shortness of breath or abdominal discomfort. Did not complain of any headaches. No visual problems. No focal pain complaints. No note of any changes with bladder or bowel. PHYSICAL EXAMINATION: GENERAL: She is an 88-year-old white female in no obvious distress. [facility] [address] [place] [address] HISTORY AND PHYSICAL Name: DIONNE MCMAHAN Room #: 514-P [facility] IN M.R.#: [id number] Admission: 01/03/19 ������������������ Attend Phys: Tien Quick MD Discharge: ������������������ Date of : 32 Report #: [id number] VITAL SIGNS: Last recorded temperature 97.3, pulse 90, respirations 18, and blood pressure 164/83. NEUROLOGIC: She is alert. She knew the city, but could not name the place. She knew that we were in winter, but she did not know the month. There is a definite latency in her responses. She can follow basic 1 step commands. EOMs appeared to be full. CHEST: Sounded clear to auscultation. CARDIOVASCULAR: Regular rate and rhythm. ABDOMEN: She does have the wound VAC in place over the incision. Bowel sounds are positive. GENITOURINARY AND RECTAL: Deferred. EXTREMITIES: She has functional range of motion of the upper extremity strength is grade 3+ to 4-/5. Lower extremities functional range of motion, strength is grade 3+/5. DTRs are trace to 1. She is min assist with basic sit to stand transfers and has ambulated a short distance mod assist with a front-wheeled walker. Bed mobility is mod assist, lower body dressing was mod assist. Regular diet with all liquids. No distal lower extremity edema. IMPRESSION: An 88-year-old white female with the following problem list: 1. Toxic metabolic encephalopathy. 2. 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 3. Diverticulitis. 4. Acute hypoxic respiratory failure with possible underlying pneumonia. 5. Hypertension. 6. Acute renal insufficiency. 7. Depression. 8. Gastroesophageal reflux disease. 9. Left shoulder pain, which has improved. PLAN: The patient is admitted for acute in-hospital inpatient rehabilitation. From a postadmission physician evaluation perspective, there are no relevant changes since the preadmission screening. Please see the above review of prior and current medical and functional conditions and comorbidities. Please see the patient's previous and current functional status. As far as risk of complications, the patient has multiple medical comorbidities as noted above. Initial plan of care involves the interdisciplinary acute inpatient rehabilitation program with the goal of maximizing the patient's functional independence, so she can hopefully return back to her prior living situation. Measurable functional goals would be for her to become modified independent with transfers, mobility, ADLs, cognition and communication so she can hopefully return back to the home setting. Prognosis reasonably good with estimated length of stay probably fairly long at 2-3 weeks. Potential barriers would [address] [address] HISTORY AND PHYSICAL Name: DIONNE MCMAHAN Room #: 514-P ADM IN M.R.#: [id number] Admission: 01/03/19 ������������������ Attend Phys: Tien Quick MD Discharge: ������������������ Date of : 32 Report #: [id number] include her multiple medical comorbidities and decreased functional status. The patient meets diagnostic criteria for an acute in-hospital inpatient rehabilitation stay. She meets the medical necessity criteria and we will have the multiple principal consultant physicians continue to follow. She does have the tolerance for therapies and has appropriate discharge goals back to the home setting. ��������������������������������������������� ���������������������������������������� By: ��������������������������������������������� 0834 0907 Tien Quick MD /nt
[2019-01-03] MEDS ORDERED: ENOXAPARIN40 MG/0.1 SUBQ (11:57)
[2019-01-03] MEDS ORDERED: METRONIDAZOLE500 M4 PO (11:57)
[2019-01-03] MEDS ORDERED: MAGOX 400400 MG PO (11:57)
[2019-01-03] MEDS ORDERED: MIRALAX17 GM PO (11:57)
[2019-01-03] MEDS ORDERED: GENICIN500 MG PO (11:57)
[2019-01-03] MEDS ORDERED: CEFUROXIME500 MG PO (11:57)
[2019-01-03] MEDS ORDERED: ALPRAZOLAM 0.0.25 M1 PO (11:57)
[2019-01-03] MEDS ORDERED: ACEROLA C500 MG PO (11:57)
[2019-01-03] MEDS ORDERED: FLORANEX GRANU1 EACH PO (11:57)
[2019-01-03] MEDS ORDERED: VITAMIN D1000 UNI1 PO (11:57)
[2019-01-03] MEDS ORDERED: TUMS PO (11:57)
[2019-01-03] MEDS ORDERED: COLACE 100 MG100 MG PO (11:57)
[2019-01-03] MEDS ORDERED: K-DUR 20 MEQ T20 MEQ PO (11:57)
[2019-01-03 15:20] VITALS: BP 174/91
--- NOTE | 2019-01-03 15:29 | NUR ---
Assumed pt care at 7am.Assessment completed.vss.Family in room with pt at all times assisting with care.Pt more alert and oriented today and less confused today.Dr Hinkle here and dc order noted.Report off to Jeanette [email or web address],piv stopped and left per wc with all her personal belongings to [facility] accompanied by family.
--- NOTE | 2019-01-03 20:05 | NUR ---
PT ADMITTED TO ROOM 514 FROM 3W S/P OPEN SIGMOIDECTOMY ON Dec AND ACUTE TOXIC METABOLIC ENCEPHALOPATHY. PATIENT IS ALERT AND ORIENTED X 3, FORGETFUL. PT LIVES AT HOME WITH PT AND INDEPENDENT ADL PRIOR ADMISSION. REASSESSMENT PER CHART. SKIN INTACT, HAS LARGE BRUISES ON HER LEFT HAND. C/O SHOULDER PAIN 10/10. PRN TRAMADOL GIVEN. VS TAKEN, B/P 174/91 HR 88. NOT ON B/P LIKE SHE WAS AT HOME. NOTIFIED EDWARD AND RECEIVED ORDED FOR PRN HYDRALIZINE. GAVE EVENING MEDS ORDERED. PT CONTINUE TO BE TAKEN ANTIBIOTIC BY MOUTH PER DR. HEART. HAD LARGE BM BEFORE CAME TO THE FLOOR PER 3W NURSE, SHE HAD SMALL LOOSE STOOL BEFORE DINNER. ASSISTED PT TO BSC MOD ASSIST WITH 2X DUE TO PAIN. ANA DRESSING AT MID ABD INTACT. ORIENTED PT TO THE UNIT SCHEDULE TO PT, HER AND HER DAUGHTER AND ANSWERED QUESTIONS. SIGNED ADMISSION CONSENT. ENCOURAGED PT TO VOID HER NEEDS. PT WAS FLAT AND IN PAIN. BUT MORE ALERT AND SMILE NOW. FALL AND SAFETY PROTOCOLS IN PLACE. PT/OT/ST JORGE TO BE DONE IN A.M. GAVE REPORT TO NIGHT NURSE TO CONTINUE TO MONITOR TO FOLLOW UP WITH ADMISSION PROCESS TO CALL FOR CONSULTS AND VERIFIED MEDS AND NEEDS. EDWARD WILL BE HERE TO WORK ON PT' MEDS TOMORROW. PT HAS SORE MOUTH AND MAY NEED NYSTATIN SWISH AND SWALLOW.
[2019-01-03 20:15] VITALS: BP 148/89
--- NOTE | 2019-01-04 01:35 | NUR ---
PT ASSESSMENT COMPLETED AND VSS. MEDS GIVEN ORDERED AND WELL TOLERATED CRUSHED IN APPLESAUSE. PT HAD A LITTLE TROUBLE WHEN TRYING TO SWALLOW PILLS HOLE. SUPPORTIVE FAMILY AT BEDSIDE. FALL PRECAUTIONS IN PLACE. ASST WITH REPOSITION FOR COMFORT. UP TO THE BSC WITH ASST/GAIT/WALKER. PT REALLY NEEDED HELP TO STAND/SIT/WIPE, ETC. SLEEPING WELL AT THIS TIME. WILL CONTINUE TO MONITOR FREQUENTLY. DSG ON ABD DRY AND INTACT.
[2019-01-04 04:26] VITALS: BP 164/83
[2019-01-04 05:14] LABS: HEMATOCRIT 26.1 % (37.0-47.0); HEMOGLOBIN 8.9 gm/dL (12.0-15.0); MCH 29.8 pg (26.0-34.0); MCHC 34.2 g/dL (28.0-37.0); MCV 87.3 fL (80.0-100.0); RBC 2.99 mil/uL (4.20-5.00); RDW 14.4 % (10.5-14.5); WBC 10.3 thou/uL (4.0-11.0)
[2019-01-04 05:28] LABS: CALCIUM 9.1 mg/dL (8.5-10.1); CREATININE 0.8 mg/dL (0.6-1.0); MAGNESIUM 1.3 mg/dL (1.8-2.4)
[2019-01-04 05:45] LABS: POTASSIUM 2.6 mmol/L (3.5-5.1)
--- NOTE | 2019-01-04 08:17 | NUR ---
THIS AM PT C/O SEVERE POWELL. EYES CLOSED. CRYING OUT IN PAIN. FAMILY SAID THAT SHE DOESN'T TYPICALLY GET POWELL. SHE WAS ALSO HAVING PAIN IN HER LEFT SHOULDER AND HAD HER HAND ON THE CENTER OF HER CHEST. BP SLIGHTLY ELEVATED. PER ORDERS GAVE TYLENOL AND HYDRALIZINE. EKG ORDERED AND RESULTS WNL PER XOCHITL NO AND FLASH. SOON AFTER PT HAD A CRITICAL LAB. K WAS 2.6. CONTACTED FLASH AND GOT AN ORDER TO SUPPLEMENT K. COMPLETED.
[2019-01-04 08:19] VITALS: BP 181/83
--- NOTE | 2019-01-04 08:20 | NUR ---
PT NOW RESTING AND COMFORTABLE. WILL CONTINUE TO MONITOR.
--- NOTE | 2019-01-04 08:43 | EKG ---
[address] [address] ELECTROCARDIOGRAM REPORT Name: DIONNE MCMAHAN Room #: 514-P ADM IN M.R.#: [id number] ������������������ Admission: 01/03/19 ������������������ Attend Phys: Tien Quick MD Discharge: ������������������ Date of : 32 Report #: [id number] ����������������������������������������������������������������� [id number] THIS REPORT FOR: //name// [facility] Test Date: 2019-01-04 Test Time: 05:01:24 Pat Name: DIONNE MCMAHAN Department: Room: 514 Gender: F Mounting Inspector: alexander : 1930 Requested By: Stephie Haro Order Number: [id number] MD: Bashir Nolasco Measurements Intervals [place] Rate: 85 P: 36 DE: 47 QRS: 2 QRSD: 87 T: 6 QT: 403 QTc: 480 Interpretive Statements Sinus rhythm No significant abnormality Compared to ECG 12/27/2018 16:22:02 Short DE interval now present First degree AV block no longer present Electronically Signed On 01-04-2019 8:42:45 LEATHER STAKER by Bashir Nolasco [email or web address] ��������������������������������������������� <ELECTRONICALLY SIGNED> ���������������������������������������� By: Bashir Nolasco MD, [facility] ��������������������������������������������� 01/04/19 0842 0501 050 Bashir Nolasco MD, [facility] /EPI
--- NOTE | 2019-01-04 16:48 | NUR ---
ASSUMED CARE AT APPROX 0715. PATIENT ALERT. ORIENTED TO PERSON. CONFUSED, FORGETFUL AT TIMES. VSS. PARTICIPATED IN THERAPY. PROVIDER NOTIFIED OF DIFFICULTY TO TOLERATE SWALLOWING MEDS- SPEECH ORDERED FOR SWALLOW EVAL, PILLS ADMINSITERED WITH LUNCH TIME MEAL IN MAGIC CUP. PATIENT TOLERATED SOME PILLS WHOLE, ULTIMATELY LARGE PILLS WERE CRUSHED AND GIVEN IN MAGIC CUP SUPLEMENT. NEGATIVE PRESSURE SUCTION DRESSING TO MIDLINE INCISION C/D/I, PATIENT DENIES PAIN AT INCISION SITE. VOLTAREN GEL APPLIED TO PATIENT'S RIGHT SHOULDER. PATIENT RESTING IN RECLINER. ROUNDED ON HOURLY. AT BEDSIDE. FALL PRECAUTIONS IN PLACE. WILL CONTINUE TO DK.
[2019-01-04 20:29] VITALS: BP 184/86
--- NOTE | 2019-01-05 03:06 | NUR ---
TOLERATING MEDS CRUSHED IN YOGURT OR PUDDING. APPRECIATES VOLTAREN TO SHOULDERS. FAMILY MEMBERS STAYING OVERNIGHT, PREVENA DRESSING INTACT WITH GREEN LIGHT. SOFT BM EARLY THIS SHIFT.
[2019-01-05 06:09] LABS: ALBUMIN 2.1 g/dL (3.4-5.0); CREATININE 0.7 mg/dL (0.6-1.0); MAGNESIUM 1.4 mg/dL (1.8-2.4); POTASSIUM 3.5 mmol/L (3.5-5.1); TOTAL BILIRUBIN 0.4 mg/dL (<0.1-1.0); TOTAL PROTEIN 5.2 g/dL (6.4-8.2)
[2019-01-05 08:50] VITALS: BP 148/92
--- NOTE | 2019-01-05 12:10 | NUR ---
chart review. pt up in recliner chair, and daughter at bedside. pt is a & o 3 with some confusion and forgetfulness. pleasant and able to make her needs know. intro to cm, team meeting, and home health. " with that home health had vna in past, "after talking with surgeon discussion will go with [facility] when she goes home" daughter and spouse erik. pt up starting to have lunch, no question or concerns voiced during visit. per chart pt independent prior to hospital, lives with erik, has cane, and walker, will cont following as needed for dc needs.
[2019-01-05 16:45] VITALS: BP 143/72
[2019-01-05 19:59] VITALS: BP 140/66
--- NOTE | 2019-01-06 03:08 | NUR ---
Assumed care of pt at 1915. Pt alert, oriented to person, place and situation. c/o pain in neck and left shoulder, relieved with po Tramadol and Tylenol. Pt's and daughter are at bedside. Ambulates to bathroom with assist of one using gait belt and walker. PO meds taken whole in puree with some difficulty swallowing. Has appeared to be sleeping when checked on hourly rounds. Fall precautions in place.
[2019-01-06 08:15] VITALS: BP 145/63
--- NOTE | 2019-01-06 13:18 | NUR ---
Presents 30-50% po intake, family reports usually 30%. May want to consider Mirtazapine for appetite stimulant.
--- NOTE | 2019-01-06 14:44 | NUR ---
pc from [place] with [facility], checking on tanika and dcp. tovar can be reached at [phone] if needed for hh needs. will cont to faxed updated clinical to deion for preparation for dc needs.
--- NOTE | 2019-01-06 17:19 | NUR ---
ASSUMED CARE OF PT AT 0715. PT IS A&O TO SELF & SITUATION. DENIES PAIN AT THIS TIME. FAMILY AT BESIDE. PT IS STABLE. CALL LIGHT WITHIN REACH. IS UP WITH MOD ASSIST X1, GB, W. REQUIRES EXTRA TIME. FALL PRECAUTION & HOURLY ROUNDING MAINTAINED. IS Q2H TURNS. HAS BEEN UP IN CHAIR MOST OF DAY. HAS BEEN TOILETED QH. LABS & VITALS REVIEWED. TEDS IN PLACE. PT IS ON ROOM AIR. WILL CONTINUE TO MONITOR. TAKES PILLS WITH APPLE SAUCE.
--- NOTE | 2019-01-06 17:30 | NUR ---
PT HAS PROVENA TO ABDOMEN INTACT.
--- NOTE | 2019-01-07 03:25 | NUR ---
ASSUMED CARE OF PT AT 1915. PT ALERT AND ORIENTED TO PERSON, PLACE, AND SITUATION. C/O LEFT SHOULDER PAIN, RELIEVED WITH VOLTAREN GEL. FAMILY AT BEDSIDE THROUGHOUT THE NIGHT. AMBULATES TO BATHROOM WITH ASSIST OF ONE USING GAIT BELT AND WALKER. HAS APPEARED TO BE SLEEPING WHEN CHECKED ON HOURLY ROUNDS. FALL PRECAUTIONS IN PLACE.
[2019-01-07 07:30] VITALS: BP 143/70
--- NOTE | 2019-01-07 10:43 | NUR ---
ASSUMED CARE AT APPROX 0715. REPORTS SLEPT OK LAST NIGHT AFTER TAKING XANAX PRN. PATIENT ALERT x ORIENTED X4, FORGETFUL AT TIMES. VSS. PARTICIPATED IN THERAPY. TOLERATE SWALLOWING MEDS WITH APPLE SAUCE SLOWLY. MOUTH SORE IS BETTER. CONTINUE TO MAGIC MOUTH WASH, EATING 40% BREAKFAST. NEGATIVE PRESSURE SUCTION DRESSING TO MIDLINE INCISION C/D/I. C/O ABD PAIN 10/10, LEFT SHOULDER PAIN 6/10, BACK PAIN 8/10, PRN TRAMADOL GIVEN. VOLTAREN GEL APPLIED TO BACK AND LEFT SHOULDER. OT GAVE PT SPONGE BATH THIS AM. UP TO BATHROOM WITH MIN ASSIST WITH A WALKER. HAD MOD SOFT BM THIS AM. CONTINUE TO BE ON MIRALAX DAILY PER DR. SCHULTZ, PT HAS HX OF DIVERTICULITIS AND S/P FOR SIGMOIDECTOMY. PRECAUTIONS IN PLACE. CALL LIGHT WITHIN REACH. FAMILY AT BEDSIDE.[facility]
[2019-01-07 21:05] VITALS: BP 150/80
--- NOTE | 2019-01-08 06:00 | NUR ---
UP TO BATHROOM WITH CONTACT GUARD ASSIST, STAYS ON TOILET FOR TEN MINUTES EACH TIME VOIDING. TRAMADOL Q 8 HOURS HELPFUL FOR PAIN, LEFT SHOULDER REMAINS PAINFUL AND IS CURRENTLY RECEIVING VOLTAREN GEL TO LEFT SHOULDER.
[2019-01-08 10:25] VITALS: BP 129/63
--- NOTE | 2019-01-08 12:59 | NUR ---
ASSUMED CARE OF PT AT 0730. PT IS A&OX3. IS ON ROOM AIR. IS STABLE. DENIES PAIN AT THIS TIME. IS UP WITH 1 ASSIST, GB, WALKER. FALL PRECAUTIONS & HOURLY ROUNDING CONTINUED THIS SHIFT. LABS & VITALS REVIEWED. PT HAS BILAT LE EDEMA. TEDS IN PLACE. IS UP IN RECLINER WITH LEGS ELEVATED. FAMILY AT BEDSIDE AT ALL TIMES. PT IS TAKING MEDS ONE AT TIME WITH WATER, PER PT & FAMILY REQUEST. PT REQUIRES EXTRA TIME. FAMILY WOULD LIKE FOR TO USE WEIGHTED UTENSILS TO HELP WITH THE TREMORS WHEN EATING. WILL PASS INFO ON TO [facility] NURSE TO SHARE [facility] THE [facility] & OT IN THE AM. CALL LIGHT WITHIN REACH. WILL CONTINUE TO MONITOR.
[2019-01-08 20:28] VITALS: BP 156/79
--- NOTE | 2019-01-09 04:17 | NUR ---
ASSUMED PT CARE 0. PT ALERT AND ORIENTED. VSS. CONTINUED SWALLOWING PRECAUTIONS. REASSESSMENT COMPLETED. CONTINUED HOURLY ROUNDING. FAMILY AT BEDSIDE. WILL CONTINUEPOC UNTIL EOS.
[2019-01-09 04:57] LABS: ABSOLUTE NEUTROPHILS 9.7 thou/uL (1.4-8.2); BASOPHILS 0.6 % (0.0-2.0); HEMATOCRIT 24.1 % (37.0-47.0); HEMOGLOBIN 7.9 gm/dL (12.0-15.0); LYMPHOCYTES 12.8 % (24.0-44.0); MCH 29.5 pg (26.0-34.0); MCHC 32.9 g/dL (28.0-37.0); MCV 89.8 fL (80.0-100.0); MONOCYTES 7.6 % (1.0-8.0); PLATELET COUNT 455 thou/uL (150-400); RBC 2.69 mil/uL (4.20-5.00); RDW 15.3 % (10.5-14.5); WBC 13.3 thou/uL (4.0-11.0)
[2019-01-09 05:07] LABS: CALCIUM 8.6 mg/dL (8.5-10.1); CREATININE 0.8 mg/dL (0.6-1.0); MAGNESIUM 1.5 mg/dL (1.8-2.4); POTASSIUM 4.6 mmol/L (3.5-5.1)
[2019-01-09 09:47] VITALS: BP 138/64
--- NOTE | 2019-01-09 14:46 | NUR ---
ASSUMED CARE AT APPROX 0715. PT WAS DROWSY THIS AM. MORE WEAKE TODAY PER OT. HAD SPONGE BATH. C/O ABD PAIN, SHOULDER PAIN AND BATH PAIN. PRN TRAMADOL GIVE ORDERED AND VOLATERN GEL. PATIENT ALERT x ORIENTED X3, FORGETFUL AT TIMES. VSS. SWALLOWING MEDS WITH APPLE SAUCE SLOWLY. MOUTH SORE IS BETTER. CONTINUE TO MAGIC MOUTH WASH, EATING 25% OF BREAKFAST AND LUNCH. NEGATIVE PRESSURE SUCTION DRESSING TO MIDLINE INCISION C/D/I, LIGHT IS OFF. UP TO BATHROOM WITH MIN ASSIST WITH A WALKER. HAD MOD SOFT BM THIS AM. CONTINUE TO BE ON MIRALAX DAILY PER DR. SCHULTZ, PT HAS HX OF DIVERTICULITIS AND S/P FOR SIGMOIDECTOMY. OFFERED SUPPORTIVE CARE. LABS REVIEWED AND NOTIFIED [facility]. POTASSIUM IS 4.6, MAG 1.5, HAS 2+EDEMA. NOTIFIED [facility], SOME MEDS CHANGED SEE [facility]. WBC ELEVATED. UA ORDERED, OBTAINED AND SENT TO LAB. PRECAUTIONS IN PLACE. CALL LIGHT WITHIN REACH. FAMILY AT BEDSIDE. PT IS OFF THE UNIT FOR CT SPINE.WILL CONTINUE TO [facility].
[2019-01-09 14:59] LABS: URINE BILIRUBIN NEGATIVE (Negative); URINE BLOOD NEGATIVE (Negative); URINE CLARITY CLEAR; URINE COLOR YELLOW; URINE GLUCOSE-RANDOM* NEGATIVE (Negative); URINE KETONES NEGATIVE (Negative); URINE LEUKOCYTES-REFLEX NEGATIVE (Negative); URINE NITRITE-REFLEX NEGATIVE (Negative); URINE PROTEIN (DIPSTICK) NEGATIVE (Negative); URINE SPECIFIC GRAVITY 1.015 (1.005-1.035); URINE UROBILINOGEN 0.2 E.U./dl (0.2-1.0)
[2019-01-09 19:30] VITALS: BP 141/74
--- NOTE | 2019-01-10 05:00 | NUR ---
UP TO BATHROOM WITH CONTACT GUARD ASSIST, GAIT BELT AND WALKER. NEEDS HELP GETTING UP TO SIDE OF BED, AND GETTING LEGS BACK IN BED. INCONTINENT TWICE DUE TO URGENCY, 2 LOOSE STOOLS OVERNIGHT. ENCOURAGED TO STAND UP STRAIGHTEN AND NOT LEAN FORWARD ON HER WALKER MUCH. FAMILY AT BEDSIDE ENCOURAGING PATIENT. WHEN VOIDING, SHE USUALLY STAYS UP ON THE TOILET FOR TEM ,IMUTES OR MORE TO COMPLETE VOID. TRAMADOL FOR PAIN AT 0230 AFTER PAIN AT 0100 HELPED WITH LYING ON RIGHT SIDE FOR 90 MINUTES. PAIN IN LEFT SHOULDER EASED WITH VOLTAREN GEL
[2019-01-10 08:15] VITALS: BP 127/54
--- NOTE | 2019-01-10 12:32 | NUR ---
Nutrition: Day one calorie count pt consumed 700 kcals and 41 gm protein meeting 41% kcal needs, 50% low end protein needs. Day two pt consumed 930 kcals and 51 gm protein meeting 55% kcal needs, 62% low end protein needs. PO intake appears to be improving, now started on mirtazapine to assist with appetite. Continue to encourage supplements pt is willing to take/alternative menu ordering within fiber restriction. D/C calorie count.
--- NOTE | 2019-01-10 12:58 | NUR ---
team meeting, recommendation: re team, with 01/19/19. home with [facility]. pt already has home dme
--- NOTE | 2019-01-10 19:00 | NUR ---
ASSUMED CARE OF PT AT 0715. HAD LASIX LAST NIGHT, UP TO BATHROOM COUPLE TIMES BUT ABLE TO SLEEP OK WITH REMERON STARTED LAST NIGHT. PT IS A&O TO SELF & SITUATION. HAD SOME PAIN ON LEFT SHOULDER, BACK AND ABD. VOLTAREN GEL GIVEN. DENIES NEEDS FOR TRAMADOL TODAY. FAMILY AT BESIDE. PT IS STABLE. CALL LIGHT WITHIN REACH. IS UP WITH MOD ASSIST X1, GB, W. REQUIRES EXTRA TIME. FALL PRECAUTION & HOURLY ROUNDING MAINTAINED. HAS BEEN UP IN CHAIR MOST OF DAY BUT UP FOR THERAPY AND TOILETING FREQUENTLY.OFFERED SUPPORTIVE CARE. MEDS GIVEN ORDERED. TAKES MEDS WITH APPLE SAUCE. UP TO DINNING ROOM FOR BREAKFAST. APPETITE GETS BETTER. ENCOURAGED PT TO VOICE HER NEEDS AND EAT. OT GAVE PT SHOWER TODAY. DRESSING ON MID ABD CHANGED. SOLE INTACT. HAS 2+ BLE EDEMA. ELEVATED BLE WHILE SITTING TEDS IN PLACE. VSS ON ROOM AIR. GAVE NIGHT NURSE REPORT TO CONTINUE TO MONITOR.
[2019-01-10 19:47] VITALS: BP 126/53
--- NOTE | 2019-01-11 02:42 | NUR ---
PATIENT AOX3 MAKES NEEDS KNOWN. PATIENT IS SLOW IN RESPONDING TO ANSWERS. PATIENT CALM AND COOPEATIVE WITH CARE AND MEDS. PATIENT AMBULATES IN THE ROOM AND BATHROOM WITH UNSTEADY GAITS. PATIENT HAS ABDDOMEN INCISION, DRESSING IS C/D/I. PATIENT DENIED PAIN OR DISCOMFORT. PATIENT TURNED Q 2 HOURS. PATIENT FEELS BETTER WHEN TURNED. PATIENT NEED MINIMUM ASSSISTANCE WITH ADL, BED MOBILITY, TRANSFER, AND TOILETING. FAMILY AT BEDSIDE. PATIENT ENCOURAGED FLUIDS. FALL PRECAUTION IN PLACE, CALL LIGHT WITHIN REACH. PATIENT IN BED ASLEEP AT THIS TIME BREATHING REGULAR AND UNLABOURED.
[2019-01-11 07:50] VITALS: BP 119/54
--- NOTE | 2019-01-11 18:03 | NUR ---
ASSUMED CARE AT APPROX 0715. PATIENT A/O X2-3. C/O OCCASIONAL MID-LOWER BACK AND LEFT SHOULDER PAIN. VOLTAREN GEL APPLIED. PATIENT PARTICIPATED IN THERAPIES. TOLERATED SITTING UP IN RECLINER OR OUT AT DINING ROOM FOR MEALS. VSS. MIDLINE INCISION DRESSING C/D/I. DENIES ABDOMINAL PAIN. LAXATIVES ADMINSITERED TO PREVENT STRAINING. UP X1 ASSIST GB AND WALKER, FALL PRECAUTIONS IN PLACE. PATIENT'S AT BEDSIDE. WILL CONTINUE TO MONITOR.
[2019-01-11 19:36] VITALS: BP 138/64
--- NOTE | 2019-01-12 03:33 | NUR ---
ASSUMED CARE OF PT AT 1915. PT ALERT AND ORIENTED TO PERSON, PLACE, AND SITUATION. UP IN CHAIR THROUGH THE EVENING. AMBULATES TO BATHROOM WITH STANDBY ASSIST USING GAIT BELT AND WALKER. C/O DIZZINESS WHEN FIRST OUT OF BED. FAMILY MEMBERS AT BEDSIDE THROUGH THE NIGHT. HAS APPEARED TO BE SLEEPING WHEN CHECKED ON HOURLY ROUNDS. FALL PRECAUTIONS IN PLACE.
[2019-01-12 04:40] LABS: HEMATOCRIT 27.5 % (37.0-47.0); HEMOGLOBIN 9.2 gm/dL (12.0-15.0); MCH 29.9 pg (26.0-34.0); MCHC 33.3 g/dL (28.0-37.0); MCV 89.7 fL (80.0-100.0); RBC 3.07 mil/uL (4.20-5.00); RDW 15.5 % (10.5-14.5); WBC 10.8 thou/uL (4.0-11.0)
[2019-01-12 04:48] LABS: ALBUMIN 2.4 g/dL (3.4-5.0); CALCIUM 9.3 mg/dL (8.5-10.1); MAGNESIUM 1.7 mg/dL (1.8-2.4); POTASSIUM 3.8 mmol/L (3.5-5.1); TOTAL BILIRUBIN 0.2 mg/dL (<0.1-1.0); TOTAL PROTEIN 7.4 g/dL (6.4-8.2)
[2019-01-12 08:56] VITALS: BP 121/69
--- NOTE | 2019-01-12 12:00 | NUR ---
sami notified by bedside nurse that la with [facility] called and wanted to talk with sami. cm called la back [phone], sami passed on that possible dc and updated clinical faxed to [facility] today. " ok, i will note be at work next week, so can call [facility] if need anything"/la. will cont following as needed for dc needs.
--- NOTE | 2019-01-12 19:17 | NUR ---
ASSUMED CARE AT APPROX 0715. PATIENT A/O X4. PARTICIPATING IN THERAPY. VSS. GAY HOSE REMOVED TO ASSESS SKIN. NO REDNESS NOTED, TEDS REPLACED PER PATIENT REQUEST, BILATERAL PEDAL EDEMA +2. PROVIDER NOTIFIED REGARDING ABNORMAL LABS, ORDERS RECEIVED. PATIENT UP X1 ASSIST SBA GB AND WALKER. C/O PAIN IN BACK AND LEFT SHOULDER. VOLTAREN GEL APPLIED, PRE-MEDICATED FOR THERAPY. FALL PRECAUTIONS IN PLACE. PATIENT PARTICIPATED IN THERAPY. FAMILY AT BEDSIDE. RESTING IN RECLINER AT CHANGE OF SHIFT.
[2019-01-12 19:56] VITALS: BP 128/53
--- NOTE | 2019-01-13 00:39 | NUR ---
PT ALERT AND ORIENTED X 4. AMB TO BR WITH WALKER AND ASSIST X 1 WITHOUT DIFFICULTY. ABD DRESSING C/D/I. PT TOOK HS MEDS IN APPLESAUCE ONE AT A TIME WITHOUT DIFFICULTY. PT C/O PAIN IN BACK AND LEFT SHOULDER. VOLTAREN GEL APPLIED ORDERED. BED ALARM ON FOR SAFETY. PT APPEARS TO BE SLEEPING ON HOURLY ROUNDS. HERE DURING THE NIGHT.
--- NOTE | 2019-01-13 14:04 | NUR ---
PATIENT ALERT AND ORIENTED AND PARTICIPATING IN REHAB. AND DAUGHTER AT BEDSIDE. PATIENT ABLE TO WALK TO BATHROOM WITH WALKER WITH STAND BY ASSIST. PATIENT SHOWERED AND CHANGED ABDOMINAL DRESSING. PATIENT SHOULDER PAIN IS BETTER AND SAID SHE IS NOT USING THE HEATING PAD.
--- NOTE | 2019-01-13 18:48 | NUR ---
ASSUMED CARE AT 1600, PATIENT WAS TRANSFERRED FROM ROOM 514 TO 501. AND DAUGHTER AT BEDSIDE. PATIENT SOMEWHAT ANXIOUS, USED THE BATHROOM WITH WALKER WITH MINIMAL ASSIST. WILL CONTINUE TO ASSESS AND ASSIST WITH ADLs NEEDED.
[2019-01-13 19:57] VITALS: BP 132/64
--- NOTE | 2019-01-14 04:21 | NUR ---
ASSUMED CARE OF PT AT 1915. PT ALERT AND ORIENTED X4. UP IN CHAIR THROUGH THE EVENING. AMBULATES TO BATHROOM WITH STANDBY ASSIST USING GAIT BELT AND WALKER. DENIES NAUSEA OR DYPSNEA. LEFT SHOULDER PAIN RELIEVED BY VOLTAREN GEL. HAS APPEARED TO BE SLEEPING WHEN CHECKED ON HOURLY ROUNDS. DAUGHTER AT BEDSIDE THROUGH THE NIGHT. BED ALARM ON.
[2019-01-14 09:42] VITALS: BP 116/60
--- NOTE | 2019-01-14 16:42 | NUR ---
ASSUMED CARE AT APPROX 0715. C/O HEADACHE 06/10, PRN TYLENOL GIVEN TWICE. FELT RELIEF. PATIENT A/O X4. PARTICIPATING IN THERAPY. VSS. REASSESSMENT PER CHART. HAD BM TODAY. CONTINUE TO BE ON MIRALAX. MIDLINE ABD DRESSING C/D/I. SOLE INTACT DENIES PAIN. NO SIGN OF INFECTION. GAY HOSE REMOVED TO ASSESS SKIN. NO REDNESS NOTED BILATERAL PEDAL EDEMA +2. BLE ELEVATED. PATIENT UP X1 ASSIST SBA GB AND WALKER. C/O PAIN IN BACK AND LEFT SHOULDER. VOLTAREN GEL APPLIED. DENIES PAIN NOW. APPETITE IS GETTING BETTER. HAS FAIR AFFECT. SHE SAID SHE FEELS BETTER AND READY TO GO HOME. FALL PRECAUTIONS IN PLACE. PATIENT PARTICIPATED IN THERAPY. FAMILY AT BEDSIDE.
[2019-01-14 21:33] VITALS: BP 130/63
--- NOTE | 2019-01-15 02:12 | NUR ---
assumed care at approx 1900 evening 01/14. pt lying in bed with head of bed elevated at change of shift. pt alert and oriented x4, appropriate and cooperative. pt up to bathroom with 1 assist. abd dressing c/d/i. pt took hs meds with yogurt tolerating well. family at bedside with pt. pt appears to be sleeping soundly with hourly rounding checks. bed alarm on and call light in reach. will continue to monitor.
[2019-01-15 07:30] VITALS: BP 117/66
[2019-01-15 08:53] VITALS: BP 122/62
--- NOTE | 2019-01-15 17:14 | NUR ---
ASSUMED CARE AT APPROX 0715. PATIENT A/O X4. DENIES PAIN. UP X1 ASSIST GB AND WALKER. VSS. FAMILY AT BEDSIDE. PARTICIPATED IN WALK WITH NURSING. SPONGE BATH GIVEN WITH SET UP ASSIST BY STAFF, MIN ASSISST FROM FAMILY AND STAFF. FALL PRECAUTIONS IN PLACE. MEDS ADMINISTERED PER ORDERS. PATIENT CALLS APPROPRIATELY FOR ASSISTANCE. WILL CONTINUE TO MONITOR.
[2019-01-15 20:37] VITALS: BP 127/75
--- NOTE | 2019-01-16 00:11 | NUR ---
PT AMBULATING TO BATHROOM WITH GAIT BELT, WALKER AND ASSIST X1 AND IS TOLERATING FAIR. DENIES NEED FOR PAIN MEDICATION. RESTING COMFORTABLY. NO NEEDS VOICED. CALL LIGHT WITHIN REACH. EILL CONTINUE TO PROVIDE FREQUENT OBSERVATION.
[2019-01-16 04:32] LABS: ALBUMIN 2.2 g/dL (3.4-5.0); CALCIUM 8.9 mg/dL (8.5-10.1); CREATININE 0.9 mg/dL (0.6-1.0); MAGNESIUM 1.7 mg/dL (1.8-2.4); POTASSIUM 3.8 mmol/L (3.5-5.1); TOTAL BILIRUBIN 0.1 mg/dL (<0.1-1.0); TOTAL PROTEIN 6.9 g/dL (6.4-8.2)
[2019-01-16 05:16] LABS: ABSOLUTE NEUTROPHILS 4.4 thou/uL (1.4-8.2); EOSINOPHILS 7.6 % (0.0-3.0); HEMATOCRIT 25.2 % (37.0-47.0); HEMOGLOBIN 8.4 gm/dL (12.0-15.0); LYMPHOCYTES 29.9 % (24.0-44.0); MCH 29.6 pg (26.0-34.0); MCHC 33.2 g/dL (28.0-37.0); MCV 88.9 fL (80.0-100.0); MONOCYTES 11.5 % (1.0-8.0); PLATELET COUNT 618 thou/uL (150-400); RBC 2.84 mil/uL (4.20-5.00); RDW 15.7 % (10.5-14.5); WBC 9.1 thou/uL (4.0-11.0)
[2019-01-16 07:45] VITALS: BP 127/66
--- NOTE | 2019-01-16 08:09 | NUR ---
ASSUME PT CARE AT 0700. RECEIVED REPORT FROM NIGHT NURSE. PT SLEPT OK. NOTICED NOTE TO CALL SURGEON'S OFFICE ON 01/16/19 TO CLARIFY WHEN SOLE TO BE TAKEN OUT. CALLED DR. SCHULTZ AND THEY WILL NOTIFY DOCTOR. WILL CONTINUE TO MONITOR.
--- NOTE | 2019-01-16 10:36 | NUR ---
FAXED REFERRAL TO [facility] SPOKE WITH NATE IN ADM. SHE RECEIVED AND WILL ACCEPT PT. AT DC. ANTICIPATE DC 01/19. DCP TO FOLLOW
[2019-01-16 15:25] VITALS: BP 127/75
[2019-01-16 19:11] VITALS: BP 128/73
--- NOTE | 2019-01-17 04:03 | NUR ---
ASSUMED CARE START OF SHIFT PT AT BEDSIDE, NO CONCERNS VOICED WHEN UP TO BATHROOM, GAIT STEADY WITH MIN ASSIST. RESTED WELL THROUGHOUT HOURLY ROUNDS WILL CONINTUE WITH CURRENT PLAN OF CARE.
[2019-01-17 07:30] VITALS: BP 121/64
--- NOTE | 2019-01-17 11:35 | NUR ---
ASSUMED CARE AT APPROX 0715. REPORTS SLEPT GOOD. PATIENT A/O X4.ABLE TO VOICE HER NEEDS. VSS. OFFERED SUPPORTIVE CARE , LABS REVIEWED. REASSESSMENT PER CHART. NO LEG EDEMA, NOTIFIED EDWARD TO CHANGE LASIX TO PRN. CONTINUE TO BE ON MIRALAX PER SURGEON. MIDLINE ABD SOLE REMOVED YESTERDAY, STERI STRIPS INTACT. NO SIGN OF INFECTION. PATIENT UP X1 ASSIST SBA GB AND WALKER. DENIES PAIN, SOB,N/V. APPETITE IS MUCH BETTER. PT IS IN GOOD SPIRIT, WILL BE DISCHARGE ON THIS COMING WEDNESDAY. FALL PRECAUTIONS IN PLACE. PATIENT PARTICIPATED IN THERAPY. FAMILY AT BEDSIDE.
--- NOTE | 2019-01-17 13:39 | NUR ---
team meeting, recommendation, dc 21st with [facility] ( nursing, pt, ot, st) changed to mod I with fww in room.
[2019-01-17 19:15] VITALS: BP 120/69
--- NOTE | 2019-01-18 02:17 | NUR ---
ASSUMED CARE OF PT AT 1915. PT ALERT AND ORIENTED X4, CALM AND COOPERATIVE. UP IN CHAIR THROUGH THE EVENING HOURS. IS MODIFIED INDEPENDENT IN THE ROOM, UP WITH WALKER. PT'S IS AT BEDSIDE THROUGH THE NIGHT. PT DENIES PAIN, NAUSEA OR DYPSNEA. INCISION WELL-APPROX WITH STERI-STRIPS. HAS APPEARED TO BE SLEEPING WHEN CHECKED ON HOURLY ROUNDS.
--- NOTE | 2019-01-18 09:36 | NUR ---
ASSUMED CARE AT 0700. PATIENT IS ALERT AND ORIENTED X4. PATIENT GARCIA'S, DRIER HELPER ARE EQUAL. LUNGS ARE CLEAR. ABD IS SOFT WITH BSX4. PATIENTS ABD INCISION DRY AND INTACT. PATIENT IS MOD/I IN ROOM WITH WALKER. UP TO THE BATHROOM TO VOID KLEBER COLORED URINE. FALL AND SAFETY PROTOCOLS IN PLACE. DENIES ANY PAIN AT THIS TIME. PATIENT AMBULATED TO GYM WITH WALKER AND P.T. CONTINUES TO PROGRESS TOWARDS D/C GOALS. WILL CONTINUE TO MONITER
[2019-01-18 20:46] VITALS: BP 120/69
--- NOTE | 2019-01-19 04:17 | NUR ---
ASSESSMENT: PT REMAIN ALERT AND ORIENT TIMES THREE. AT THE BEDSIDE DURING THE NIGHT. DENIES PAIN, SOB AND N/V. TOLERATING PO INTAKE OF BOTTLE WATER WITH PILLS. REQUESTED TO SLEEP IN THE CHAIR DURING THE NIGHT WHILE SLEPT ON THE SOFA. VSS, AFEBRILE. POSSIBLE DC TODAY. MOD INDEP WITH WALKER. SLOW PROGRESS, WILL CONTINUE TO MONITOR.
--- NOTE | 2019-01-19 07:51 | NUR ---
ASSUMED CARE AT 0700. PATIENT IS ALERT AND ORIENTED X4. PATIENT GARCIA'S. ALL SOURCE ANALYST ARE EQUAL. LUNGS ARE CLEAR. ABD IS SOFT WITH BSX4. ABD INCISION DRY AND INTACT. PATIENT IS MOD I UP IN ROOM WITH WALKER. FALL AND SAFETY PROTOCOLS IN PLACE. DENIES ANY PAIN AT THIS TIME. PLAN D/C TO HOME TODAY. WILL CONTINUE TO MONITER.
[2019-01-19 08:13] VITALS: BP 112/66
[2019-01-19] MEDS ORDERED: REMERON15 MG PO (09:37)
[2019-01-19] MEDS ORDERED: ZANAFLEX4 MG PO (09:37)
[2019-01-19] MEDS ORDERED: LASIX 20 MG TAB20 MG PO (09:37)
[2019-01-19] MEDS ORDERED: PANTOPRAZOLE SO40 M1 PO (09:37)
[2019-01-19] MEDS ORDERED: NEURONTIN 400400 M1 PO (09:37)
[2019-01-19] MEDS ORDERED: MAGOX 400400 MG PO (09:37)
[2019-01-19] MEDS ORDERED: TYLENOL EXTRA500 MG PO (09:37)
[2019-01-19 10:01] VITALS: BP 127/75
[2019-01-19 10:08] VITALS: BP 127/75
--- NOTE | 2019-01-19 14:07 | NUR ---
PT. DISCHARGING TODAY TO HOME WITH [facility] SPOKE WITH NATE IN ADM. SHE RECEIVED DC ORDERS AND WILL NOTIFY PT. OF TIME OF VISITS.
--- NOTE | 2019-01-19 14:48 | NUR ---
DISCHARGE INSTRUCTIONS GIVEN TO PATIENT AND . PATIENT AND LEFT WITH ALL THEIR BELONGINGS AND D/C INSTRUCTIONS, AND SCRIPTS.
--- NOTE | 2019-01-21 15:00 | HC ---
[facility] [place] [address] CONSULTATION Name: DIONNE MCMAHAN Room #: 501-A [facility] M.R.#: [id number] Admission: 01/03/19 ������������������ Attend Phys: Tien Quick MD Discharge: 01/19/19 ������������������ Date of : 34 Report #: [id number] THIS REPORT FOR: //name// CC: Tien Simental DATE OF SERVICE: 01/08/2019 NEUROBEHAVIORAL STATUS EXAM. 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 The patient underwent an open sigmoidectomy due to recurrent diverticulitis with a sigmoid stricture on 12/29/2018. Postoperatively, problems with hypotension and dizziness ensued, and she developed acute hypoxic respiratory failure. Additionally, her assessment on admission to the rehabilitation unit includes diverticulitis, acute hypoxic respiratory failure with possible underlying pneumonia, hypertension, acute renal insufficiency, depression, gastroesophageal reflux disease and left shoulder pain. A complete description of her medical condition and history can be found in her medical record. Neuropsychological consultation was requested to provide assistance in the assessment of cognitive and emotional status and to provide recommendations and services. Prior to this most recent admission, she was living independently with the assistance of her in their home. For the last 9 months, she has had a dramatic decrease in activity and had become increasingly isolative socially. Decreased activity was attributed to avoidance of exposure to potential virus and bacteria as she was awaiting surgery. Change in functioning was noted about time 9 months ago with decrease in active engagement. The patient has 2 children. Her family is supportive. She is a high school graduate. 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 TECHNIQUES UTILIZED: Clinical interview, review of medical records, staff consultation and behavioral observation, mini mental status exam 2 standard version and clock drawing and then family interview -- and daughter. EXAMINATION FINDINGS: The patient was alert during the interview. However, she appeared lethargic and drowsy, although she was responsive and able to describe [address] [address] CONSULTATION Name: DIONNE MCMAHAN Room #: 501-A [facility].#: [id number] Admission: 01/03/19 ������������������ Attend Phys: Tien Quick MD Discharge: 01/19/19 ������������������ Date of : 32 Report #: [id number] events leading to her hospitalization and aspects of her current treatment. There is no evidence of aphasia. Her thoughts are logical and goal oriented. There is no evidence of thought disorder. She does not report auditory or visual hallucinations. Her affect appears flat and depressed. The patient reports difficulty with appetite, sleep, energy level, memory and word finding. Her family provide the additional answers to questions, which indicate difficulty in cognition and mood to the extent that the patient is lacking insight into those deficits. Additionally, a [id number] in 10/2018 with whom she was quite close contributing to her feeling of a depressed mood. The patient was taking alprazolam prior to her hospitalization on a regular basis. Her performance on the MMSE 2 brief version was extremely low with a raw score of 11 of 16. She was 3/3 for initial registration, 4/5 for orientation to time, 3/[address] and 1/3 for immediate recall of 3 items after a brief time delay and distraction. Performance on the MMSE 2 standard version was extremely low with a raw score of 19 of 30 and a T score of 21. She was 0/5 for serial sevens, 2/2 for naming, 1/1 for repetition, 3/3 for auditory comprehension. She could read and follow a single command and write a sentence. The patient could not copy a simple geometric design. She also was unable to draw a clock, place the hands or the numbers within the clock. Evidence of perseveration and visual spatial disorganization are noted. Upper extremity tremor also interfered with performance of the task. The patient is presenting with deficits in memory, concentration and attention and visual spatial organization. Deficits in executive functioning are likely. Her mood appears despondent. DIAGNOSTIC IMPRESSION: Delirium, hypoactive, acute -- resolving. Neurocognitive disorder, unspecified, without behavior disorder -- extent to be determined, likely in the moderate range. Unspecified depressive disorder with anxiety. RECOMMENDATIONS: The patient may benefit from the use of antidepressant medicine to assist in the management of mood. Verbal praise and complements about participation in therapies. Diminished cognition will require assistance of compensatory strategies for memory, concentration, organization and executive functioning. Speech Therapy will continue to assist with cognitive rehabilitation. [address] [address] CONSULTATION Name: MCMAHANDIONNE BRANDIE Room #: 501-A [facility] IN M.R.#: [id number] Admission: 01/03/19 ������������������ Attend Phys: Tien Quick MD Discharge: 01/19/19 ������������������ Date of : 32 Report #: [id number] A followup neuropsychological evaluation approximately 30-60 days following her hospitalization may be of benefit to clarify the severity of neurocognitive deficits. The patient presents with a severe upper extremity tremor along with micrographia and difficulty with gait. 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 Thank you very much for allowing me to provide the consultation on this patient. ��������������������������������������������� <ELECTRONICALLY SIGNED> ���������������������������������������� By: Ming Perez, PhD ��������������������������������������������� 01/21/19 1500 [id number] Ming Perez, PhD /nt
--- NOTE | 2019-01-23 15:56 | NUR ---
FIM LATE ENTRY UPDATE: ON D/C AM 01/19/19 AT 0755 PER REPORT BY ARSENIO DOMINGUEZ, COGNITION IS ALERT AND ORIENTED X4 AND COMPLETELY APPROPRIATE FOR MOD-I IN ROOM. FIM FOR COMPREHENSION IS 7 , VERBAL EXPRESSION IS 7, SOCIAL INTERACTION IS 7, PROBLEM SOLVING IS 6, MEMORY IS 6.
== END 2019-01-19 14:42 | disposition home health service (06) | DRG 91 ==
LOC: ENTRNSPT 01-19 14:23 → EDTRNSPTSTS 01-19 14:35
PROVIDERS: Nurse Practitioner; Nurse Practitioner Family; ADMIT Physical Medicine & Rehabilitation
DX: G92 Toxic encephalopathy (principal); J96.01 Acute respiratory failure with hypoxia; K57.32 Diverticulitis of large intestine without perforation or abscess without bleeding; R13.10 Dysphagia, unspecified; D62 Acute posthemorrhagic anemia; J95.89 Other postprocedural complications and disorders of respiratory system, not elsewhere classified; E46 Unspecified protein-calorie malnutrition; K56.7 Ileus, unspecified; I10 Essential (primary) hypertension; K21.9 Gastro-esophageal reflux disease without esophagitis; R53.81 Other malaise; E87.6 Hypokalemia; E83.42 Hypomagnesemia; I95.81 Postprocedural hypotension; G62.9 Polyneuropathy, unspecified; R41.0 Disorientation, unspecified; R41.9 Unspecified symptoms and signs involving cognitive functions and awareness; F41.8 Other specified anxiety disorders; M25.512 Pain in left shoulder; Z96.653 Presence of artificial knee joint, bilateral; M62.84 Sarcopenia; G89.29 Other chronic pain; M54.9 Dorsalgia, unspecified; K59.00 Constipation, unspecified; M19.012 Primary osteoarthritis, left shoulder; D47.3 Essential (hemorrhagic) thrombocythemia; H81.13 Benign paroxysmal vertigo, bilateral; Z90.49 Acquired absence of other specified parts of digestive tract; Z88.8 Allergy status to other drugs, medicaments and biological substances; Z88.2 Allergy status to sulfonamides; Z88.1 Allergy status to other antibiotic agents; Z85.828 Personal history of other malignant neoplasm of skin; Z68.24 Body mass index [BMI] 24.0-24.9, adult
CPT/HCPCS: 10112